=== PATIENT | male | born 1965 | race Caucasian/White ===

== ENCOUNTER 2023-11-03 13:56 | Inpatient (IN) | payer OTHER ==
--- OUTSIDE RECORDS SUMMARY | 2023-11-03 14:00 | XMS REPORT | Continuity of Care Document ---
Author Name Unknown Address [address] [facility] [place] [address] [facility] Address [address] [facility] [address] [place] [address] Care Team Providers Care Lard Renderer Name Role Phone Jeanne Martin Primary Care Physician [phone] OSMANY PARRA Attending Clinician Jen vailable Doctor Unassigned, [place] Attending Clinician U gianna Abbott, c Attending Clinician Unavailable Osmany Parra MD Attending Clinician Osmany Parra MD Attending Clinician PINKY DONALDSON Attending Clinician Unavailab le Pinky Donaldson Attending Clinician [phone] Doctor Unassigned, [place] Attending Clinician U Niurka Esteves MD Attending Clinician [phone] TATIANNA GORDILLO Attending Clinician Unavailable Tatianna Kamara Attending Clinician [phone] NIURKA CASE Attending Clinician Unavailable Lab, Ang - Db Attending Clinician Unavailable WANDY GRIGGS Attending Clinician Unavailable PINKY DONALDSON Admitting Clinician Unavailab OSMANY Morris Admitting Clinician Jen vailable ZACK HUI Admitting Clinician Unavailable NIURKA CASE Admitting Clinician Unavailable Payers Payer Name Policy Type Policy Number Effective Date Expirati on Date Source Problems Condition Name Condition Details Condition Category Status Onset Date Resolution Date Last Treatment Date Treating Clinician Comments Source Prostate mass Prostate mass Disease Active 06-21 00:00: 00 [facility] Elevated PSA Elevated PSA Disease Active 06-21 00:00: 00 [facility] History of claustroph obia History of claustroph obia Disease Active 3-17 00:00: 00 [facility] Colon cancer screening Colon cancer screening Disease Active 2017-03 00:00: 00 Overview: Formattin g of this note might be different from the original. Added automatic ally from request for surgery [id number] [facility] Chronic diarrhea Chronic diarrhea Disease Active 2017-03 00:00: 00 Overview: Formattin g of this note might be different from the original. Added automatic ally from request for surgery [id number] [facility] Rectal bleeding Rectal bleeding Disease Active 2017-03 00:00: 00 Overview: Formattin g of this note might be different from the original. Added automatic ally from request for surgery [id number] [facility] Abdominal pain, left lower quadrant Abdominal pain, left lower quadrant Disease Active 2017-03 00:00: 00 Overview: Formattin g of this note might be different from the original. Added automatic ally from request for surgery [id number] [facility] Allergies, Adverse Reactions, Alerts Allergy Name Allergy Type Status Severity Reaction(s) Onset Date Inactive Date Treating Clinician Comments Source NO KNOWN ALLERGIE S Drug Class Active [facility] Social History Social Habit Start Date Stop Date Quantity Comments Source History of tobacco use Cigarette Smoker [facility] Gender identity [facility] of Social function 2023-04-09 00:00:00 2023-04-09 00:00:00 [facility] Exposure to SARS-CoV-2 (event) 2022-07-06 00:00:00 2022-07-16 11:05:00 Not sure [facility] Tobacco use and exposure 2022-06-21 00:00:00 2022-06-21 00:00:00 Smokeless tobacco non-user [facility] Sex assigned at 1965 00:00:00 1965 00:00:00 [facility] Smoking Status Start Date Stop Date Source Tobacco smoking consumption unknown [facility] Smokes tobacco daily 2022-06-21 00:00:00 [facility] Medications Ordered Medication Name Filled Medication Name Start Date Stop Date Current Medication? Ordering Clinician Indication Dosage Frequency Signature (SIG) Comments Components Source gadobenate dimeglumine (MULTIHANCE -20 mL) injection 16.42 mL 05-09 20:00: 00 05-09 19:43 :00 No [id number] .2mL/kg 16.42 mL (0.2 mL/kg ?82.1 kg), Intravenou s, ONCE, 1 dose, On Sat05/10/23 at 1400, Routine [facility] LORazepam (ATIVAN) tablet 2 mg 05-09 18:45: 00 05-09 18:45 :00 No [id number] 2mg 2 mg, Oral, ONCE, 1 dose, On Sat05/10/23 at 1245, Routine [facility] sodium bicarbonate 8.4 % (1 mEq/mL) injection 07-16 18:47: 08 07-16 18:47 :08 No Slow IV Push, PRN, Starting on Sat07/16/22 at 1347, Until Discontinu ed, Routine, Intra-op [facility] lidocaine 2% (XYLOCAINE) 20 mg/mL (2 %) injection 07-16 18:46: 18 07-16 18:46 :18 No PRN, Starting on Sat07/16/22 at 1346, Until Discontinu ed, Routine, Intra-op [facility] LORazepam (ATIVAN) tablet 07-16 18:15: 00 07-16 18:15 :00 No Oral, PRN, Starting on Sat07/16/22 at 1315, Until Discontinu ed, Routine, Intra-op [facility] cefdinir 300 mg capsule 06-21 00:00: 00 Yes 300mg Take 1 capsule by mouth every 12 (twelve) hours. [facility] ipratropium 0.02 % nebulizer solution 06-13 00:00: 00 Yes [facility] BREZTRI AEROSPHERE 160-9-4.8 mcg/actuati on HFAA 05 00:00: 00 Yes [facility] predniSONE 20 mg tablet 06-05 00:00: 00 Yes [facility] HYDROcodone -acetaminop hen 10-325 mg tablet 06-05 00:00: 00 Yes 1{tbl} Take 1 tablet by mouth every 6 (six) hours as needed. [facility] hydrOXYzine 25 mg tablet 06-05 00:00: 00 Yes 25mg Take 1 tablet by mouth every 8 (eight) hours. [facility] benzonatate 100 mg capsule 06-05 00:00: 00 Yes [facility] arformotero L 15 mcg/2 mL nebulizer solution 06-05 00:00: 00 Yes [facility] simvastatin 40 mg tablet 05-21 00:00: 00 Yes [facility] tamsulosin 0.4 mg 24 hr capsule 05-21 00:00: 00 Yes [facility] lamoTRIgine 25 mg tablet 05-21 00:00: 00 Yes [facility] LORazepam (ATIVAN) tablet 2 mg 05-18 16:15: 00 05-18 15:22 :00 No [id number] 2mg 2 mg, Oral, ONCE, 1 dose, On Sat05/18/22 at 1115, Routine [facility] peg-electro lyte soln 236-22.74-6 .74 -5.86 gram solution 2017-03 0-24 00:00: 00 Yes Take as directed before colonoscop y [facility] SYMBICORT 160-4.5 mcg/actuati on inhaler 2017-03 008 00:00: 00 Yes INL 2 PFS PO BID [facility] fluticasone 50 mcg/actuati on nasal spray 2017-03 00:00: 00 Yes SHAKE LQ AND U 1 SPR IEN D [facility] gabapentin 300 mg capsule 2017-03 00:00: 00 Yes TK 1 C PO TID [facility] simvastatin 20 mg tablet 2017-03 00:00: 00 Yes TK 1 T PO HS [facility] albuterol 2.5 mg /3 mL (0.083 %) nebulizer solution 2017-03 0 00:00: 00 Yes [facility] DALIRESP 500 mcg tablet 11-14 00:00: 00 Yes TK 1 T PO D [facility] loratadine 10 mg tablet 11-13 00:00: 00 Yes TK 1 T PO QD [facility] Immunizations Ordered Immunization Name Filled Immunization Name Date Status Comments Source SARS-COV-2 COVID-19 PFIZER VACCINE 2020-06-10 00:00:00 Completed [facility] SARS-COV-2 COVID-19 PFIZER VACCINE 2020-06-10 00:00:00 Completed [facility] SARS-COV-2 COVID-19 PFIZER VACCINE 2020-06-10 00:00:00 Completed [facility] SARS-COV-2 COVID-19 PFIZER VACCINE 2020-06-10 00:00:00 Completed [facility] SARS-COV-2 COVID-19 PFIZER VACCINE 2020-06-10 00:00:00 Completed [facility] SARS-COV-2 COVID-19 PFIZER VACCINE 2020-06-10 00:00:00 Completed [facility] SARS-COV-2 COVID-19 PFIZER VACCINE 2020-06-10 00:00:00 Completed [facility] SARS-COV-2 COVID-19 PFIZER VACCINE 2020-06-10 00:00:00 Completed [facility] SARS-COV-2 COVID-19 PFIZER VACCINE 2020-06-10 00:00:00 Completed [facility] SARS-COV-2 COVID-19 PFIZER VACCINE 2020-06-10 00:00:00 Completed [facility] SARS-COV-2 COVID-19 PFIZER VACCINE 2020-06-10 00:00:00 Completed [facility] SARS-COV-2 COVID-19 PFIZER VACCINE 2020-06-10 00:00:00 Completed [facility] SARS-COV-2 COVID-19 PFIZER VACCINE 2020-06-10 00:00:00 Completed [facility] SARS-COV-2 COVID-19 PFIZER VACCINE 2020-06-10 00:00:00 Completed [facility] SARS-COV-2 COVID-19 PFIZER VACCINE 2020-06-10 00:00:00 Completed [facility] SARS-COV-2 COVID-19 PFIZER VACCINE 2020-06-10 00:00:00 Completed [facility] SARS-COV-2 COVID-19 PFIZER VACCINE 2020-06-10 00:00:00 Completed [facility] SARS-COV-2 COVID-19 PFIZER VACCINE 2020-05-20 00:00:00 Completed [facility] SARS-COV-2 COVID-19 PFIZER VACCINE 2020-05-20 00:00:00 Completed [facility] SARS-COV-2 COVID-19 PFIZER VACCINE 2020-05-20 00:00:00 Completed [facility] SARS-COV-2 COVID-19 PFIZER VACCINE 2020-05-20 00:00:00 Completed [facility] SARS-COV-2 COVID-19 PFIZER VACCINE 2020-05-20 00:00:00 Completed [facility] SARS-COV-2 COVID-19 PFIZER VACCINE 2020-05-20 00:00:00 Completed [facility] SARS-COV-2 COVID-19 PFIZER VACCINE 2020-05-20 00:00:00 Completed [facility] SARS-COV-2 COVID-19 PFIZER VACCINE 2020-05-20 00:00:00 Completed [facility] SARS-COV-2 COVID-19 PFIZER VACCINE 2020-05-20 00:00:00 Completed [facility] SARS-COV-2 COVID-19 PFIZER VACCINE 2020-05-20 00:00:00 Completed [facility] SARS-COV-2 COVID-19 PFIZER VACCINE 2020-05-20 00:00:00 Completed [facility] SARS-COV-2 COVID-19 PFIZER VACCINE 2020-05-20 00:00:00 Completed [facility] SARS-COV-2 COVID-19 PFIZER VACCINE 2020-05-20 00:00:00 Completed [facility] SARS-COV-2 COVID-19 PFIZER VACCINE 2020-05-20 00:00:00 Completed [facility] SARS-COV-2 COVID-19 PFIZER VACCINE 2020-05-20 00:00:00 Completed [facility] SARS-COV-2 COVID-19 PFIZER VACCINE 2020-05-20 00:00:00 Completed [facility] SARS-COV-2 COVID-19 PFIZER VACCINE 2020-05-20 00:00:00 Completed [facility] SARS-COV-2 COVID-19 PFIZER VACCINE Unknown Completed [facility] SARS-COV-2 COVID-19 PFIZER VACCINE Unknown Completed [facility] SARS-COV-2 COVID-19 PFIZER VACCINE Unknown Completed [facility] SARS-COV-2 COVID-19 PFIZER VACCINE Unknown Completed [facility] SARS-COV-2 COVID-19 PFIZER VACCINE Unknown Completed [facility] SARS-COV-2 COVID-19 PFIZER VACCINE Unknown Completed [facility] SARS-COV-2 COVID-19 PFIZER VACCINE Unknown Completed [facility] SARS-COV-2 COVID-19 PFIZER VACCINE Unknown Completed [facility] SARS-COV-2 COVID-19 PFIZER VACCINE Unknown Completed [facility] SARS-COV-2 COVID-19 PFIZER VACCINE Unknown Completed [facility] SARS-COV-2 COVID-19 PFIZER VACCINE Unknown Completed [facility] SARS-COV-2 COVID-19 PFIZER VACCINE Unknown Completed [facility] SARS-COV-2 COVID-19 PFIZER VACCINE Unknown Completed [facility] SARS-COV-2 COVID-19 PFIZER VACCINE Unknown Completed [facility] SARS-COV-2 COVID-19 PFIZER VACCINE Unknown Completed [facility] SARS-COV-2 COVID-19 PFIZER VACCINE Unknown Completed [facility] SARS-COV-2 COVID-19 PFIZER VACCINE Unknown Completed [facility] SARS-COV-2 COVID-19 PFIZER VACCINE Unknown Completed [facility] Vital Signs Vital Name Observation Time Observation Value Comments S arsh Systolic blood pressure 2023-09-24 13:06:00 127 [facility] Di[facility] blood [facility] 2023-09-24 13:06:00 75 mm[facility]Hg[facility] Heart rate 2023-09-24 13:06:00 79 /min [facility] Body temperature 2023-09-24 13:06:00 36.89 Kimberlee [facility] Respiratory rate 2023-09-24 13:06:00 20 /min [facility] Body height 2023-09-24 13:06:00 177.8 cm [facility] Body weight 2023-09-24 13:06:00 81.285 kg [facility] BMI 2023-09-24 13:06:00 25.71 kg/m2 [facility] Systolic blood pressure 2023-05-10 18:41:00 144 mm[Hg[facility] Diastolic blood pressure 2023-05-10 18:41:00 89 mm[Hg[facility] Heart rate 2023-05-10 18:41:00 90 /min [facility] Respiratory rate 2023-05-10 18:41:00 18 /min [facility] Body height 2023-05-10 18:41:00 177.8 cm [facility] Body weight 2023-05-10 18:41:00 82.101 kg [facility] BMI 2023-05-10 18:41:00 25.97 kg/m2 [facility] Oxygen saturation in Arterial blood by Pulse oximetry 2023-05-10 18:41:00 98 /min [facility] Systolic blood pressure 2023-04-09 14:45:00 161 mm[Hg[facility] Diastolic blood pressure 2023-04-09 14:45:00 80 mm[Hg[facility] Heart rate 2023-04-09 14:45:00 80 /min [facility] Body temperature 2023-04-09 14:45:00 36.67 Kimberlee [facility] Body height 2023-04-09 14:45:00 177.8 cm [facility] weight 2023-04-09 14:45:00 82.101 kg Univ [facility] BMI 2023-04-09 14:45:00 25.97 kg/m2 [facility] Oxygen saturation in Arterial blood by Pulse oximetry 2023-04-09 14:45:00 98 /min [facility] Systolic blood pressure 2022-10-02 18:38:00 138 mm[Hg] [facility] Diastolic blood pressure 2022-10-02 18:38:00 78 mm[Hg] [facility] Heart rate 2022-10-02 18:38:00 80 /min [facility] Body height 2022-10-02 18:38:00 177.8 cm Univ [facility] Body weight 2022-10-02 18:38:00 79.289 kg [facility] BMI 2022-10-02 18:38:00 25.08 kg/m2 [facility] Oxygen saturation in Arterial blood by Pulse oximetry 2022-10-02 18:38:00 95 /min [facility] Systolic blood pressure 2022-07-16 19:00:00 112 mm[Hg[facility] Diastolic blood pressure 2022-07-16 19:00:00 91 mm[Hg[facility] Heart rate 2022-07-16 19:00:00 100 /min [facility] Respiratory rate 2022-07-16 19:00:00 18 /min [facility] Oxygen saturation in Arterial blood by Pulse oximetry 2022-07-16 19:00:00 95 /min [facility] Body height 2022-07-16 16:08:00 177.8 cm Univ [facility] Body weight 2022-07-16 16:08:00 79.924 kg Univ [facility] BMI 2022-07-16 16:08:00 25.28 kg/m2 [facility] Body height 2022-05-18 15:17:00 177.8 cm Univ [facility] Body weight 2022-05-18 15:17:00 78.926 kg [facility] BMI 2022-05-18 15:17:00 24.97 kg/m2 [facility] Oxygen saturation in Arterial blood by Pulse oximetry 2022-05-18 15:17:00 98 /min [facility] Systolic blood pressure 2022-05-18 15:17:00 151 mm[Hg[facility] Diastolic blood pressure 2022-05-18 15:17:00 98 mm[Hg[facility] Heart rate 2022-05-18 15:17:00 75 /min [facility] Respiratory rate 2022-05-18 15:17:00 18 /min [facility] Procedures Procedure Date / Time Performed Performing Clinician Source PROSTATIC SPECIFIC ANTIGEN 2023-09-24 13:48:00 Osmany Parra [facility] CT LOW DOSE LUNG NODULE 2023-09-17 13:21:55 Pinky Donaldson [facility] PATIENT QUESTIONNAIRE 2023-04-09 06:01:00 Doctor Unassigned, [place] [facility] CT THORAX WO CONTRAST 2022-10-29 15:40:29 Sa luis alfredo Donaldson [facility] PATIENT QUESTIONNAIRE 2022-10-02 05:01:00 Doctor Unassigned, [place] [facility] SURGICAL PATHOLOGY EXAM 2022-07-16 18:53:00 Ishaan Hui [facility] ASSIGNMENT OF BENEFITS 2022-04-24 15:44:32 Docto r Unassigned, [place] [facility] SCANNED LAB RESULTS 2022-03-15 06:01:00 Doctor U nassigned, [place] [facility] Encounters Start Date/Time End Date/Time Encounter Type Admission Type Attending Clinicians Care Facility Care Department Encounter ID Source 2023-09-26 00:00:00 2023-11-02 18:26:10 Patient Secure Msg Doctor Unassigned, [place] Doctor Unassigned, [place] [facility] [id number] 350.1.13.10 4.2.7.2.686 [id number] [facility] 2023-09-24 09:30:00 2023-09-24 09:45:00 Supervisor [employer] Canning Visit Lab, [facility] 1..114 350.1.13.10 4.2.7.2.686 [id number] [facility] 2023-09-24 08:00:00 2023-09-24 08:36:38 Outpatient R OSMANY PARRA [facility] [id number] [facility] 2023-09-24 08:00:00 2023-09-24 08:36:38 [facility]..114 350.1.13.10 4.2.7.2.686 [id number] [facility] 2023-09-17 07:59:31 2023-09-17 23:59:00 Outpatient R PINKY DONALDSON [facility] [id number] [facility] 2023-09-17 07:59:31 2023-09-17 23:59:00 Hospital Encounter Pinky Donaldson [facility] 1.84.114 350.1.13.10 4.2.7.2.686 [id number] [facility] 2023-06-05 09:30:04 2023-06-05 09:30:04 Outpatient SFA [id number] Ye Segal 2023-05-10 11:48:53 2023-05-10 23:59:00 Outpatient R OSMANY PARRA [facility] [id number] [facility] 2023-05-10 11:48:53 2023-05-10 23:59:00 [facility] 1..114 350.1.13.10 4.2.7.2.686 [id number] [facility] 2023-04-09 09:00:00 2023-04-10 08:22:38 Outpatient R OSMANY PARRA [facility] [id number] [facility] 2023-04-09 09:00:00 2023-04-10 08:22:38 [facility] 1.840.114 350.1.13.10 4.2.7.2.686 [id number] [facility] 2023-04-09 09:30:00 2023-04-09 09:45:00 Supervisor Pow[employer] Canning Visit Lab, [facility] Osmany Parra [facility] 1.20.114 350.1.13.10 4.2.7.2.686 [id number] [facility] 2023-04-09 00:00:00 2023-04-09 00:00:00 Orders Only Doctor Unassigned, [place] [facility] 1.2840.114 350.1.13.10 4.2.7.2.686 [id number] [facility] 2023-01-01 09:25:44 2023-01-01 09:25:44 Outpatient SFA [id number] Ye Colin Philipp 2022-10-29 10:20:07 2022-10-29 23:59:00 Outpatient R PINKY DONALDSON [facility] [id number] [facility] 2022-10-29 10:20:07 2022-10-29 23:59:00 Hospital Encounter Pinky Donaldson [facility] 1.84.114 350.1.13.10 4.2.7.2.686 [id number] [facility] 2022-10-25 00:00:00 2022-10-25 00:00:00 Outpatient R PINYK DONALDSON [facility] [id number] [facility] 2022-10-02 15:30:00 2022-10-02 15:45:00 Supervisor [employer] Primer Canning Visit Lab, [facility] LesleyOsmany [facility] 1..114 350.1.13.10 4.2.7.2.686 [id number] [facility] 2022-10-02 14:00:00 2022-10-02 14:30:00 [facility] 1..114 350.1.13.10 4.2.7.2.686 [id number] [facility] 2022-10-02 14:00:00 2022-10-02 14:00:00 Outpatient R STEVENOSMANY FERGUSON [facility] [id number] [facility] 2022-10-02 00:00:00 2022-10-02 00:00:00 Orders Only Doctor Unassigned, [place] [facility] 1..114 350.1.13.10 4.2.7.2.686 [id number] [facility] 2022-10-01 11:23:39 2022-10-01 11:23:39 Outpatient SFA [id number] Ye Colin Philipp 2022-07-31 08:50:21 2022-07-31 23:59:00 Outpatient R PINKY DONALDSON [facility] [id number] [facility] 2022-07-31 08:50:21 2022-07-31 23:59:00 Hospital Encounter Pinky Donaldson [facility] 1..114 350.1.13.10 4.2.7.2.686 [id number] [facility] 2022-07-31 00:00:00 2022-07-31 00:00:00 Telephone Niurka Case [facility] 1..114 350.1.13.10 4.2.7.2.686 [id number] [facility] 2022-07-16 10:20:39 2022-07-16 23:59:00 Outpatient TATIANNA SANFORD [facility] [id number] [facility] 2022-07-16 10:20:39 2022-07-16 23:59:00 [facility] .2.840.114 350.1.13.10 4.2.7.2.686 [id number] [facility] 2022-07-12 00:00:00 2022-07-12 00:00:00 Outpatient R EIVE [facility] [id number] [facility] 2022-06-21 13:51:58 2022-06-21 13:51:58 Outpatient TATIANNA SANFORD [facility] [id number] [facility] 2022-06-21 00:00:00 2022-06-21 00:00:00 [facility] [id number] [facility] 2022-06-13 10:05:46 2022-06-13 10:05:46 Outpatient [facility] [id number] Ye Segal 2022-05-25 00:00:00 2022-05-25 00:00:00 Telephone Evie [facility] .2.840.114 350.1.13.10 4.2.7.2.686 [id number] [facility] 2022-05-18 09:57:24 2022-05-18 23:59:00 Outpatient R EVIE [facility] [id number] [facility] 2022-05-18 09:57:24 2022-05-18 23:59:00 Hospital Encounter Evie [facility] 1.840.114 350.1.13.10 4.2.7.2.686 [id number] [facility] 2022-04-24 10:45:00 2022-04-24 11:00:00 Supervisor Powder [employer] Canning Visit Lab, Fabian Case [facility] 1.840.114 350.1.13.10 4.2.7.2.686 [id number] [facility] 2022-04-24 10:00:00 2022-04-24 10:26:29 Outpatient Cal CASE NIURKA [facility] [id number] [facility] 2022-04-24 00:00:00 2022-04-24 00:00:00 Orders Only Doctor Unassigned, [place] [facility] [id number] [facility] 2022-03-15 00:00:00 2022-03-15 00:00:00 Orders Only Doctor Unassigned, [place] [facility] [id number] [facility] 2020-06-10 09:50:00 2020-06-10 09:50:00 Outpatient [facility] [id number] [facility] 2020-06-10 09:50:00 2020-06-10 09:50:00 Outpatient [facility] [id number] [facility] 2020-05-20 09:50:00 2020-05-20 09:50:00 Outpatient WANDY GARCIA [facility] [id number] [facility] Results Test Description Test Time Test Comments Results Resul t Comments Source CT LUNG NODULE 2023-09-02 6 14:48:55 HISTORY: Not available. TECHNIQUE: 64-Multidetector noncontrast enhanced CT of the chest isobtained. FINDINGS: Comparison made with 10/29/2022 CT chest study. Thyroid gland, trachea and central bronchial airways appear unremarkable.Several subcentimeter lymph nodes are seen surrounding the trachea, APwindow region and in the subcarinal space, stable since the previous study. Thickened bilateral adrenal glands are stable. Irregular pleural-based nodularity/fibrosis noted in the superior segmentof the left lower lung with retraction of the adjacent interlobar fissureand linear fibrosis stranding extending up to the pleura. In addition, a 3mm nodule is seen in the superior segment of the right lower lobe (19:95,unchanged. Obstructive lung disease noted with numerous 2 cm or smaller sizeemphysematous bulla scattered throughout both lungs. A new irregular shaped nodularity has developed, measuring [id number] in the left upper lung (9:104). 4 mm pleural-based nodularity is seen in the anterior lateral left upperlung (9:117, unchanged. Irregular fibrotic changes are suspected in theposterior segment of left upper lung with mild bronchiectasis in theadjacent airways (9:114-120), unchanged. Minimal focal fibrotic changes areseen in the posterior segment of the right upper lobe adjacent to theinterlobar fissure (9:116-120, unchanged). No pleural effusion or pericardial effusion. No pneumothorax orpneumomediastinum. Focal calcification is seen in the left coronary sinusregion adjacent to left main coronary artery. No other calcifications inthe coronary circulation. Calcifications seen in the aortic arch and at theorigins of brachiocephalic arteries. Prominent Schmorl's node noted in the upper plate of T10 secondary toremote trauma. Remote fracture deformity noted in left seventh and eighthribs. CONCLUSIONS: 1. New irregular shaped 8 mm nodule in left upper lobe since October 2022study. This could be a focal area of nonspecific pulmonary infection.2. Unchanged multiple sites of parenchymal nodules/distortion secondary tofibrosis in both lungs and underlying generalized obstructive lung disease. Recommendations for Follow-up and Management of Indeterminate Lung Nodules. Nodule ? ? Diameter >6-8 mm ? Follow up CT at 6, 12 and 24 months. ? If no change, no further follow up. [facility] Notes Date/Time Note Provider Source 2023-09-24 09:30:00 Callled for patient at waiting area, no answer. Jordyn Valladares [facility] 2023-09-24 09:30:00 Images from the original note were not included. Venipuncture collection performed by clean technique on the left anticubitus. Total of 1 attempts were made. Slight pressure and a bandage/dressing were applied to the site(s). The patient experienced no complications. The following specimens were processed according to instructions and sent to [facility] laboratories per lab order on 09/24/23: LT BLUE 1 SST RED LAV PPT DK GREEN (LiHep) DK GREEN (SodH) GARCIA DK BLUE (K2) DK BLUE (S) ACD Blood Culture NIPT/NTD [facility] 2023-09-24 08:00:00 Called. No answer. Left a message on machine for patient to give us a call back. Madeline Mcfadden RN Madeline Blank RN [facility] 2023-09-24 08:00:00 Called, no answer. Left a message on machine for patient to give us a call back. Will send mychart message. Madeline Mcfadden RN [facility] 2023-04-09 09:30:00 Images from the original note were not included. Venipuncture collection performed by clean technique on the right anticubitus. Total of 1 attempts were made. Slight pressure and a bandage/dressing were applied to the site(s). The patient experienced no complications. The following specimens were processed according to instructions and sent to [facility] laboratories per lab order on 04/09/23: LT BLUE SST 1 RED LAV PPT DK GREEN (LiHep) DK GREEN (SodH) GARCIA DK BLUE (K2) DK BLUE (S) ACD Blood Culture NIPT/NTD [facility] 2022-10-02 15:30:00 Formatting of this n ote is different from the original. Images from the original note were not included. Venipuncture collection performed by clean technique on the right anticubitus. Total of 1 attempts were made. Slight pressure and a bandage/dressing were applied to the site(s). The patient experienced no complications. The following specimens were processed according to instructions and sent to [facility] laboratories per lab order on 10/02/22: Drawn by Parisa WATKINS SST 1 RED LAV PPT DK GREEN (LiHep) DK GREEN (SodH) GARCIA DK BLUE (K2) DK BLUE (S) ACD Blood Culture NIPT/NTD [facility] 2022-10-02 14:00:00 Addended by: OSMANY PARRA MD on: 10/07/2022 11:09 AM Modules accepted: Level of Service [facility]
[2023-11-03 16:08] LABS: Absolute Basophils 0.1 K/uL (0-0.5); Absolute Eosinophils 0.2 K/uL (0-0.5); Absolute Lymphocytes (CBC) 1.3 K/uL (0.7-4.9); Absolute Monocytes 1.3 K/uL (0.1-1.3); Absolute Neutrophil 8.6 K/uL (1.8-8.0); Basophils % 0.5 % (0-1.3); Eosinophils % 1.7 % (0-4.4); Hemoglobin 15.8 g/dL (13.6-17.9); Lymphocytes % 11.6 % (15.3-44.8); MCH 33.3 pg (27.0-35.0); MCHC 32.9 g/dL (32.0-36.0); MCV 101.4 fL (80-100); MPV 7.5 fL (7.6-11.3); Monocytes % 11.7 % (3.3-12.3); Neutrophils % 74.5 % (41.7-73.7); Platelets 345 thou/uL (152-406); RBC Red Blood Cell Count 4.73 M/uL (4.33-5.43); Red Cell Distribution Width 13.4 % (12.1-15.2)
[2023-11-03 16:12] LABS: PT Prothrombin Time 12.2 SECONDS (9.4-12.5); Protime INR 1.09
[2023-11-03 16:19] LABS: ALT/SGPT 18 U/L (16-61); Albumin 3.4 g/dL (3.4-5.0); Albumin/Globulin Ratio 0.8 (1.1-1.8); Alkaline Phosphatase 157 U/L (45-117); Anion Gap 9.1 mEq/L (5.0-15.0); BUN Blood Urea Nitrogen 7 mg/dL (7-18); Bicarbonate 27 mEq/L (21-32); Bilirubin Direct 0.3 mg/dL (0-0.2); Bilirubin Indirect, Calculated 0.5 mg/dL (0.2-0.8); Bilirubin Total 0.8 mg/dL (0.2-1.0); Globulin 4.5 g/dL (2.3-3.5); Glomerular Filtration Rate 102 ml/min (=/>90); Glucose Level 100 mg/dL (74-106); NT PRO-BNP 126 pg/mL (<125); Potassium 4.1 mEq/L (3.5-5.1); Protein, Total 7.9 g/dL (6.4-8.2); Sodium Level 132 mEq/L (136-145); Troponin High Sensitivity 4.2 pg/mL (<58.9)
[2023-11-03 16:34] LABS: AST/SGOT < 10 U/L (15-37)
--- NOTE | 2023-11-03 17:09 | RAD REPORT ---
EXAM DESCRIPTION: CT - Chest For Pe Angio - 11/03/2023 4:57 pm CLINICAL HISTORY: Chest pain. HEMOPTYSIS COMPARISON: <Comparisons> TECHNIQUE: CT angiogram of the pulmonary arteries was performed with MIP. All CT scans are performed using dose optimization technique as appropriate and may include automated exposure control or mA/KV adjustment according to patient size. FINDINGS: No evidence of pulmonary thromboembolism. No acute aortic finding demonstrated. Mild emphysema. There is an irregular rounded masslike lesion in the anterior left upper lobe measuri ng 4.6 x 4.1 cm with internal areas of lucency. This is new since March 2023. Mildly prominent lymp h nodes in the mediastinum including AP window measuring 9 mm. No significant pericardial or pleural fluid. No concerning bony finding. IMPRESSION: No evidence of pulmonary thromboembolism. A 4.6 cm rounded masslike lesion in the left upper lobe with internal areas of cavitation noted. This is new since recent study dated March 27. Differential would include infection and neoplasia.
--- NOTE | 2023-11-03 17:33 | ER ---
Nurse's Notes [facility] Name: Garth Loaiza Age: 58 yrs Sex: Male : 1965 Arrival Date: 11/03/2023 Time: 13:56 Bed 4 Private MD: Diagnosis: Lung cavitary lesion, pneumonia, COPD, hemoptysis Presentation: 11/02 14:41 Chief complaint: Patient states: he has been coughing up blood "for a few days". ap3 patient also reports weakness, nausea and vomiting. patient reports pain on his left mid back area. patient reports the pain to be a 4/10 on the pain scale at this time. Coronavirus screen: At this time, the client does not indicate any symptoms associated with coronavirus-19. Ebola Screen: No symptoms or risks identified at this time. Initial Sepsis Screen: Does the patient meet any 2 criteria? No. Patient's initial sepsis screen is negative. Does the patient have a suspected source of infection? No. Patient's initial sepsis screen is negative. Risk Assessment: Do you want to hurt yourself or someone else? Patient reports no desire to harm self or others. Onset of symptoms is unknown. 14:41 Method Of Arrival: Ambulatory ap3 14:41 Acuity: TERRIE 3 ap3 15:51 Acuity: TERRIE 2 hb Triage Assessment: 14:44 General: Appears uncomfortable, Behavior is calm, cooperative, appropriate for age, ap3 Reports fatigue for. Pain: Complains of pain in left mid back Pain currently is 4 out of 10 on a pain scale. Neuro: Level of Consciousness is awake, alert, obeys commands, Oriented to person, place, time, situation, Appropriate for age. Neuro: Reports weakness. Cardiovascular: Patient's skin is warm and dry. Respiratory: Reports cough that is Airway is patent Respiratory effort is even, unlabored, Respiratory pattern is regular, symmetrical. GI: Reports nausea, vomiting. Historical: - Allergies: 14:43 tramadol; ap3 - PMHx: 14:43 Bronchitis; Chronic obstructive lung disease; ap3 - Immunization history:: Client reports receiving the 2nd dose of the Covid vaccine, Flu vaccine is not up to date. - Infectious Disease History:: Denies. - Social history:: Smoking status: Patient reports the use of cigarette tobacco products, smokes one-half pack cigarettes per day. Screenin:45 Abuse screen: Denies threats or abuse. Nutritional screening: No deficits noted. ap3 Tuberculosis screening: No symptoms or risk factors identified. 16:36 [facility] ED Fall Risk Assessment (Adult) History of falling in the last 3 months, mb9 including since admission No falls in past 3 months (0 pts) Confusion or Disorientation No (0 pts) Intoxicated or Sedated No (0 pts) Impaired Gait No (0 pts) Mobility Assist Device Used No (0 pt) Altered Elimination No (0 pt) Score/Fall Risk Level 0 - 2 = Low Risk Oriented to surroundings, Maintained a safe environment, Educated pt \\T\\ family on fall prevention, incl call for assistance when getting out of bed. Assessment: 16:35 General: Appears uncomfortable, ill, Behavior is calm, cooperative. Pain: Denies pain. mb9 Neuro: Hung Agitation-Sedation Scale (RASS): 0 - Alert and Calm Level of Consciousness is awake, alert, obeys commands, Oriented to person, place, time, situation, Appropriate for age Reports dizziness. Cardiovascular: Heart tones S1 S2 present Patient's skin is warm and dry. Rhythm is sinus tachycardia. Respiratory: Reports cough that is productive, blood clots Airway is patent Respiratory effort is even, unlabored, Respiratory pattern is regular, symmetrical, Breath sounds are coarse bilaterally. GI: Abdomen is round non-distended, Bowel sounds present X 4 quads. Abd is soft and non tender X 4 quads. : No signs and/or symptoms were reported regarding the genitourinary system. EENT: No signs and/or symptoms were reported regarding the EENT system. Derm: Skin is pink, warm \\T\\ dry. Musculoskeletal: Range of motion: intact in all extremities. 17:50 Reassessment: Patient appears in no apparent distress at this time. No changes from ld1 previously documented assessment. Pt C/O SOB. See MAR for orders. 18:19 Reassessment: No changes from previously documented assessment. Patient and/or family mb9 updated on plan of care and expected duration. Pain level reassessed. Patient is alert, oriented x 3, equal unlabored respirations, skin warm/dry/pink. 19:43 Reassessment: Patient appears in no apparent distress at this time. Patient and/or bm8 family updated on plan of care and expected duration. Pain level reassessed. Patient is alert, oriented x 3, equal unlabored respirations, skin warm/dry/pink. General: Appears in no apparent distress. uncomfortable, Behavior is calm, cooperative. Pain: Complains of pain in back Pain currently is 4 out of 10 on a pain scale. Neuro: Level of Consciousness is awake, alert, obeys commands, Oriented to person, place, time, situation, Appropriate for age. Cardiovascular: Denies chest pain, Heart tones S1 S2 present Capillary refill < 3 seconds Patient's skin is warm and dry. Rhythm is sinus rhythm. Respiratory: Airway is patent Respiratory effort is even, unlabored, relaxed, Respiratory pattern is regular, symmetrical, Breath sounds are coarse in left posterior lower lobe, right posterior middle lobe and right posterior lower lobe. GI: No signs and/or symptoms were reported involving the gastrointestinal system. GI: No signs and/or symptoms were reported involving the gastrointestinal system. : No signs and/or symptoms were reported regarding the genitourinary system. EENT: No signs and/or symptoms were reported regarding the EENT system. Derm: No signs and/or symptoms reported regarding the dermatologic system. Musculoskeletal: Range of motion: intact in all extremities. Vital Signs: 14:41 BP 126 / 85; Pulse 89; Resp 18; Temp 98.6(O); Pulse Ox 99% on R/A; Weight 79.38 kg; ap3 Height 5 ft. 10 in. ; Pain 4/10; 16:35 BP 145 / 83; Pulse 98; Resp 18; Pulse Ox 99% on R/A; mb9 17:50 BP 140 / 84; Pulse 94; Resp 14; Pulse Ox 99% on R/A; ld1 18:45 BP 137 / 84; Pulse 91; Resp 18; Pulse Ox 97% on R/A; mb9 19:48 BP 139 / 79; Pulse 89; Resp 13; Temp 98.6; Pulse Ox 98% ; Pain 4/10; bm8 14:41 Body Mass Index 25.11 (79.38 kg, 177.8 cm) ap3 14:41 Pain Scale: Adult ap3 19:48 Pain Scale: Adult bm8 [place] Coma Score: 19:43 Eye Response: spontaneous(4). Motor Response: obeys commands(6). Verbal Response: bm8 oriented(5). Total: 15. ED Course: 14:00 Patient arrived in ED. mg5 14:03 Jimmy Del Valle MD is Attending Physician. sp3 14:43 Triage completed. ap3 14:45 Arm band placed on right wrist. ap3 15:50 Inserted saline lock: 20 gauge in right antecubital area, using aseptic technique. hb Blood collected. Flushed with 10 mL NS. 15:51 Basic Metabolic Panel Sent. hb 15:51 CBC with Diff Sent. hb 15:51 LFT's Sent. hb 15:51 NT PRO-BNP Sent. hb 15:51 PT-INR Sent. hb 15:51 Troponin HS Sent. hb 16:00 EKG done, by ED staff, reviewed by Jimmy Del Valle MD. em1 16:28 Izabella Lugo, RN is Primary Nurse. mb9 16:35 No provider procedures requiring assistance completed. mb9 16:38 Placed in gown. Bed in low position. Call light in reach. Side rails up X 1. Provided mb9 Education on: press call light if needing anything . Client placed on continuous cardiac and pulse oximetry monitoring. NIBP monitoring applied. manager sign on. 16:59 CT Chest For PE Angio In Process Unspecified. EDMS 17:33 Bernarda Zhou MD is Hospitalizing Provider. sp3 17:54 Blood Culture Adult (2) Sent. ld1 17:56 Private physician called and connected Dr. Donaldson with Dr. Del Valle for patient transfer eb consultation. 18:19 Patient admitted, IV remains in place. mb9 19:00 Report given to Cassandra. mb9 Administered Medications: 17:54 Drug: Cefepime IVPB 2 grams IVPB at 200 ml/hr once over 30 mins; (mix in NS 100 mL) ld1 Route: IVPB; Rate: 200 ml/hr; Infused Over: 30 mins; Site: right antecubital; 18:22 Follow up: Response: No adverse reaction; IV Status: Completed infusion mb9 19:46 Follow up: Response: No adverse reaction; IV Status: Completed infusion; IV Intake: bm8 100ml 17:54 Drug: DuoNeb Nebulize (3:1) (2.5 mg - 0.5 mg) 3 ml Nebulizer once Route: Nebulizer; ld1 18:22 Follow up: Response: No adverse reaction mb9 19:45 Follow up: Response: No adverse reaction bm8 Medication: 16:38 VIS not applicable for this client. mb9 Intake: 19:46 IV: 100ml; Total: 100ml. bm8 Outcome: 17:33 Decision to Hospitalize by Provider. sp3 21:17 Admitted to Tele accompanied by nurse, via wheelchair, room 407, with chart, Report bm8 called to rikki barr 21:17 Condition: stable 21:17 Instructed on the need for admit, no drinking with medication, no driving heavy equipment, medication usage, safety practices, Demonstrated understanding of instructions, follow-up care, medications, 21:19 Patient left the ED. bm8 Signatures: Dispatcher [employer] EDMS Josh Laws em1 Cecily Fitzpatrick, RN RN Danuta Rogers RN RN ap3 Adry Pa Lauren RN RN ld1 Jimmy Del Valle MD MD sp3 Parish, Izabella Desouza RN RN mb9 Isabel English mg5 Kalpesh Acosta RN RN bm8 Corrections: (The following items were deleted from the chart) 14:44 14:43 Allergies: Iodine; ap3 ap3 16:37 16:35 Neuro: Hung Agitation-Sedation Scale (RASS): 0 - Alert and Calm Level of mb9 Consciousness is awake, alert, obeys commands, Oriented to person, place, time, situation, Appropriate for age mb9 16:40 16:35 Respiratory: Airway is patent Respiratory effort is even, unlabored, Respiratory mb9 pattern is regular, symmetrical, Breath sounds are coarse bilaterally. mb9
--- NOTE | 2023-11-03 17:34 | EDPHYS ---
Physician Documentation [facility] Name: Garth Loaiza Age: 58 yrs Sex: Male : 1965 Arrival Date: 11/03/2023 Time: 13:56 Bed 4 Private MD: ED Physician Jimmy Del Valle HPI: 11/02 16:53 This 58 yrs old Male presents to ER via Ambulatory with complaints of Cough - BLOOD. sp3 16:53 58-year-old male with a history of COPD and prostate cancer not currently on treatment sp3 but is due to start a regimen now presents to the ED with left-sided chest pain radiating around to his back and hemoptysis for the last several days. He denies fever, headache, neck pain, abdominal pain, vomiting, diarrhea, syncope, near syncope, rash, known sick contacts, travel history, or any other signs or symptoms on ROS at this time. No prior history of DVT or PE noted. Patient does have mild shortness of breath and cough as well.. Historical: - Allergies: 14:43 tramadol; ap3 - PMHx: 14:43 Bronchitis; Chronic obstructive lung disease; ap3 - Immunization history:: Client reports receiving the 2nd dose of the Covid vaccine, Flu vaccine is not up to date. - Infectious Disease History:: Denies. - Social history:: Smoking status: Patient reports the use of cigarette tobacco products, smokes one-half pack cigarettes per day. ROS: 16:54 Constitutional: Negative for fever, chills, and weight loss, Eyes: Negative for injury, sp3 pain, redness, and discharge, Neck: Negative for injury, pain, and swelling, Abdomen/GI: Negative for abdominal pain, nausea, vomiting, diarrhea, and constipation, Back: Negative for injury and pain, MS/Extremity: Negative for injury and deformity, Skin: Negative for injury, rash, and discoloration, Neuro: Negative for headache, weakness, numbness, tingling, and seizure, Psych: Negative for depression, anxiety, suicide ideation, homicidal ideation, and hallucinations, Allergy/Immunology: Negative for hives, rash, and allergies, Endocrine: Negative for neck swelling, polydipsia, polyuria, polyphagia, and marked weight changes, Hematologic/Lymphatic: Negative for swollen nodes, abnormal bleeding, and unusual bruising, Exam: 16:54 Constitutional: This is a well developed, well nourished patient who is awake, alert, sp3 and in no acute distress. Head/Face: Normocephalic, atraumatic. Eyes: Pupils equal round and reactive to light, extra-ocular motions intact. Lids and lashes normal. Conjunctiva and sclera are non-icteric and not injected. Cornea within normal limits. Periorbital areas with no swelling, redness, or edema. ENT: Nares patent. No nasal discharge, no septal abnormalities noted. External auditory canals are clear. Oropharynx with no redness, swelling, or masses, exudates, or evidence of obstruction, uvula midline. Mucous membranes moist. Neck: Trachea midline, no thyromegaly or masses palpated, and no cervical lymphadenopathy. Supple, full range of motion without nuchal rigidity, or vertebral point tenderness. No Meningismus. Chest/axilla: Normal chest wall appearance and motion. Nontender with no deformity. No lesions are appreciated. Cardiovascular: Regular rate and rhythm with a normal S1 and S2. No gallops, murmurs, or rubs. Normal PMI, no JVD. No pulse deficits. Respiratory: Lungs have equal breath sounds bilaterally, clear to auscultation and percussion. No rales, rhonchi or wheezes noted. No increased work of breathing, no retractions or nasal flaring. Abdomen/GI: Soft, non-tender, with normal bowel sounds. No distension or tympany. No guarding or rebound. No evidence of tenderness throughout. Back: No spinal tenderness. No costovertebral tenderness. Full range of motion. Skin: Warm, dry with normal turgor. Normal color with no rashes, no lesions, and no evidence of cellulitis. MS/ Extremity: Pulses equal, no cyanosis. Neurovascular intact. Full, normal range of motion. Neuro: Awake and alert, GCS 15, oriented to person, place, time, and situation. Cranial nerves II-XII grossly intact. Motor strength 5/5 in all extremities. Sensory grossly intact. Cerebellar exam normal. Normal gait. Psych: Awake, alert, with orientation to person, place and time. Behavior, mood, and affect are within normal limits. 16:54 ECG was reviewed by the Attending Physician. EKG demonstrates normal sinus rhythm at 92 sp3 bpm with normal intervals, normal QRS, normal axis, nonspecific ST's ST changes without evidence of acute ischemia. Vital Signs: 14:41 BP 126 / 85; Pulse 89; Resp 18; Temp 98.6(O); Pulse Ox 99% on R/A; Weight 79.38 kg; ap3 Height 5 ft. 10 in. ; Pain 4/10; 16:35 BP 145 / 83; Pulse 98; Resp 18; Pulse Ox 99% on R/A; mb9 17:50 BP 140 / 84; Pulse 94; Resp 14; Pulse Ox 99% on R/A; ld1 18:45 BP 137 / 84; Pulse 91; Resp 18; Pulse Ox 97% on R/A; mb9 19:48 BP 139 / 79; Pulse 89; Resp 13; Temp 98.6; Pulse Ox 98% ; Pain 4/10; bm8 14:41 Body Mass Index 25.11 (79.38 kg, 177.8 cm) ap3 14:41 Pain Scale: Adult ap3 19:48 Pain Scale: Adult bm8 [place] Coma Score: 19:43 Eye Response: spontaneous(4). Motor Response: obeys commands(6). Verbal Response: bm8 oriented(5). Total: 15. MDM: 14:42 Patient medically screened. 3 11/02 14:47 Order name: Basic Metabolic Panel; Complete Time: 16:52 3 11/02 14:47 Order name: CBC with Diff; Complete Time: 16:52 sp3 11/02 14:47 Order name: LFT's; Complete Time: 16:52 3 11/02 14:47 Order name: NT PRO-BNP; Complete Time: 16:52 3 11/02 14:47 Order name: PT-INR; Complete Time: 16:52 sp3 11/02 14:47 Order name: Troponin HS; Complete Time: 16:52 3 11/02 17:21 Order name: Blood Culture Adult (2) sp3 11/02 19:31 Order name: CBC with Automated Diff EDMS 11/02 19:31 Order name: CBC with Automated Diff EDMS 11/02 19:31 Order name: Comprehensive Metabolic Panel EDMS 11/02 19:31 Order name: Comprehensive Metabolic Panel EDMS 11/02 19:31 Order name: Lipid Profile EDMS 11/02 19:31 Order name: Lipid Profile EDMS 11/02 14:47 Order name: CT Chest For PE Angio; Complete Time: 17:18 sp3 11/02 19:31 Order name: CONS Physician Consult [facility] 11/02 14:47 Order name: Cardiac monitoring; Complete Time: 16:29 sp3 11/02 14:47 Order name: EKG - Nurse/Tech; Complete Time: 16:00 sp3 11/02 14:47 Order name: IV Saline Lock; Complete Time: 15:50 sp3 11/02 14:47 Order name: Labs collected and sent; Complete Time: 15:50 sp3 11/02 14:47 Order name: O2 Per Protocol; Complete Time: 16:29 sp3 11/02 14:47 Order name: O2 Sat Monitoring; Complete Time: 16:29 sp3 Administered Medications: 17:54 Drug: Cefepime IVPB 2 grams IVPB at 200 ml/hr once over 30 mins; (mix in NS 100 mL) ld1 Route: IVPB; Rate: 200 ml/hr; Infused Over: 30 mins; Site: right antecubital; 18:22 Follow up: Response: No adverse reaction; IV Status: Completed infusion mb9 19:46 Follow up: Response: No adverse reaction; IV Status: Completed infusion; IV Intake: bm8 100ml 17:54 Drug: DuoNeb Nebulize (3:1) (2.5 mg - 0.5 mg) 3 ml Nebulizer once Route: Nebulizer; ld1 18:22 Follow up: Response: No adverse reaction mb9 19:45 Follow up: Response: No adverse reaction bm8 Disposition Summary: 11/03/23 17:33 Hospitalization Ordered Notes: Hospitalization Status: Inpatient Admission sp3 Provider: Bernarda Zhou sp3 Location: Telemetry/[facility] (Inpatient) sp3 Condition: Stable sp3 Problem: new sp3 Symptoms: have worsened sp3 Bed/Room Type: Standard sp3 Room Assignment: 407(11/03/23 20:26) sp Diagnosis - Lung cavitary lesion, pneumonia, COPD, hemoptysis sp3 Forms: - Medication Reconciliation Form sp3 - SBAR form sp3 - Leadership Thank You Letter sp3 Signatures: Dispatcher [employer] [facility] Magali Ramirez Amanda, RN RN ap3 Laurel Carmona RN RN ld1 Jimmy Del Valle MD MD sp3 Izabella Lugo RN RN mb9 Kalpesh Acosta RN bm8 Corrections: (The following items were deleted from the chart) 14:44 14:43 Allergies: Iodine; ap3 ap3 14:47 14:47 Chest For PE Angio+CT.RAD.BRZ ordered. EDMS EDMS 20:26 17:33 sp3 sp
[2023-11-03] MEDS ORDERED: NA CHLORIDE 0.9% 100 ML ONE (17:41)
[2023-11-03] MEDS ORDERED: CEFEPIME 2 GM VIAL ONE (17:41)
[2023-11-03] MEDS ORDERED: IPRATROPIUM BROM 0.5MG/2.5ML ONE (17:53)
[2023-11-03] MEDS ORDERED: ALBUTEROL 2.5 MG/3 ML NEB SOL ONE (17:53)
--- NOTE | 2023-11-03 19:19 | P.HP ---
Certification for Inpatient With expected LOS: >2 Midnights Patient will require the following post-hospital care: None Practitioner: I am a practitioner with admitting privileges, knowledge of patient current condition, hospital course, and medical plan of care. Services: Services provided to patient in accordance with Admission requirements found in Title 42 Section 412.3 of the Code of Federal Regulations Patient History Date of Service: 11/03/23 Reason for admission: Cough and hemoptysis History of Present Illness: 58-year-old male with past medical history of COPD, follows with Dr. Castro, prostate cancer, not on any therapy follows at [facility]; anxiety/depression, chronic tobacco use; who presented to the hospital due to difficulty and with history of recurrent cough with hemoptysis as well as pleuritic left-sided chest pain. Chest pain is more in the side of the chest, worse with coughing but also present even at rest. He stated intensity of pain was worse 5 days ago but seem to be improving. He stated cough is sometimes brown tinge with few blood specks. He states the cough and hemoptysis similar to an episode 5 years ago when he was treated for pneumonia. He has also been having wheezing despite his regular use of his MDI/nebulizer. He states his prostate cancer is relatively stable, he gets regular CT follow- ups. He has a history of lung nodule for which he had a biopsy in the past that was reportedly benign about 10 years ago. He still actively smokes. He states he is nonadherence with his antilipid diabetic as well as his anxiety medication. He does not want them restarted. He is only compliant with his COPD meds. On arrival in the ED vital signs were stable, satting well on room air, CT of the chest shows A 4.6 cm rounded masslike lesion in the left upper lobe with internal areas of cavitation noted. This is new since recent study dated March 27. Differential would include infection and neoplasia. He has been admitted for suspected left upper lobe pneumonia with cavitation and COPD exacerbation Allergies iodine Allergy (Mild, Verified 12/10/11 12:13) Itching/Hives/Rash Home Medications: Albuterol Neb [Proventil 0.083% Neb Soln] TID PRN 12/11/11 Ipratropium [place] BID 12/11/11 Budesonide/Glycopyr/Formoterol [Breztri Aerosphere Inhaler] 5.9 gm IH BID 06/01/22 Gabapentin 300 mg PO TID 06/01/22 Albuterol Neb [Proventil 0.083% Neb Soln] 2.5 mg NEB [id number] PRN #60 amp 06/05/22 Amox/Clavulanate [Augmentin 500-125 mg Tab*] 500 mg PO BID #14 tab 06/05/22 Arformoterol Tartrate [Brovana] 15 mcg NEB BIDRESP #60 vial.neb 06/05/22 Azithromycin Tab [Zithromax*] 500 mg PO DAILY #5 tab 06/05/22 Benzonatate [Tessalon Perle*] 100 mg PO TID PRN #20 cap 06/05/22 Hydrocodone 10/APAP 325 [[place] 10/325] 1 tab PO Q6H PRN #30 tab 06/05/22 Ipratropium Neb [Atrovent*] 0.5 mg NEB [id number] #60 amp 06/05/22 Roflumilast [Daliresp*] 500 mcg PO DAILY #1 tab 06/05/22 hydrOXYzine HCL [Atarax*] 25 mg PO Q8HP #30 tab 06/05/22 predniSONE [Prednisone*] 20 mg PO BID #20 tab 06/05/22 - Past Medical/Surgical History Diabetic: No -: COPD -: Seizure Disorder -: Anxiety disorder Past Surgical History: Patient denies surgical history - Family History Family History: Reviewed- Non-Contributory - Social History Smoking Status: Heavy Tobacco smoker (>10 cigarettes/day) Counseled patient to stop smoking for: less than 10 minutes Smoking therapy provided: No Patient receptive to therapy: No Alcohol use: No CD- Drugs: No Caffeine use: Yes Place of Residence: Home Review of Systems General: Chills ENT: Ear Discharge, Nose Pain Respiratory: Cough, Hemoptysis, Sputum, Wheezing Cardiovascular: Chest Pain Physical Examination - Physical Exam General: Alert, In no apparent distress, Oriented x3, Cooperative HEENT: Atraumatic, Normocephalic, PERRLA Neck: 2+ carotid pulse no bruit, JVD not distended, No Thyromegaly Respiratory: Normal air movement, Expiratory wheezes Cardiovascular: Normal pulses, Regular rate/rhythm, Normal S1 S2 Gastrointestinal: Normal bowel sounds, Soft and benign, Non-distended Musculoskeletal: No clubbing, No swelling Neurological: Normal speech, Normal strength at 5/5 x4 extr, Sensation intact, Cranial nerves 3-12 intact - Studies Laboratory Data (last 24 hrs) 11/03/23 11/03/23 11/03/23 15:50 15:50 15:50 WBC 11.50 H Hgb 15.8 Hct 48.0 Plt Count 345 PT 12.2 INR 1.09 Sodium 132 L Potassium 4.1 BUN 7 Creatinine 0.82 Glucose 100 Total Bilirubin 0.8 AST < 10 L ALT 18 Alkaline Phosphatase 157 H Assessment and Plan - Problems (Diagnosis) (1) Left lower lobe pneumonia Current Visit: Yes Status: Acute (2) Hemoptysis Current Visit: Yes Status: Acute (3) Prostate cancer Current Visit: Yes Status: Acute (4) COPD exacerbation Current Visit: No Status: Acute - Plan Impression Hemoptysisdue to cavitary lung lesion Cavitatary left lung mass likely due to complicated pneumonia COPD with acute exacerbation History of anxiety History of chronic tobacco use History of prostate canceron close monitoring Plan Will admit patient to inpatient status Pulmonary consult with Gloria Ford Patient might need bronchoscopy Start empirical antibiotics with cefepime/Vanco DuoNebs every 6 hours No steroids for now since suspected underlying pneumonia Obtain sputum for culture and sensitivity Pain control for pleuritic chest pain Add Ativan as needed for anxiety, patient refusing previous home medication for anxiety Lovenox for DVT prophylaxis but hold dose tonight for possible bronc in a.m. Full code Disposition possible hospital stay for more than 48 hours Nicotine patch, smoking cessation advised Discharge Plan: Home - Advance Directives Does patient have a Living Will: No Does patient have a Durable POA for Healthcare: No - Code Status/Comfort Care Code Status: Full Code Physician Review: Patient Assessed, Agree with Above Assessment and Plan Time Spent Managing Pts Care (In Minutes): 65
[2023-11-03] MEDS ORDERED: ONDANSETRON 4 MG/2 ML VIAL IV PRN (19:24)
[2023-11-03] MEDS ORDERED: ACETAMINOPHEN 500 MG TAB PO PRN (19:24)
[2023-11-03] MEDS ORDERED: MORPHINE 2 MG/ML SYR IV PRN ×2 (19:24→21:52)
[2023-11-03] MEDS ORDERED: HYDROCODONE/APAP 10/325 TAB PO PRN (19:26)
[2023-11-03] MEDS ORDERED: LORAZEPAM 0.5 MG TABLET PO PRN (19:27)
[2023-11-03] MEDS ORDERED: HYDRALAZINE HCL 20 MG/ML VIAL IV PRN (19:27)
[2023-11-03] MEDS ORDERED: VANCOMYCIN 1 GM in NA CHLORIDE 0.9% 250 ML IVPB SCH (21:00)
[2023-11-03] MEDS ORDERED: CEFEPIME 1 GM in NA CHLORIDE 0.9% 100 ML IV SCH (21:00)
[2023-11-03] MEDS: NA CHLORIDE 0.9% 500 ML ONE (21:57)
[2023-11-03] MEDS: VANCOMYCIN 1 GM/VIAL ONE (21:58)
[2023-11-03] MEDS: GABAPENTIN 300 MG CAP PO SCH (22:08)
[2023-11-03] MEDS: GUAIFENESIN 600 MG SA TAB PO SCH (22:09)
[2023-11-03] MEDS: NA CHLORIDE 0.9% 1,000 ML IV SCH (22:13)
[2023-11-03] MEDS: VANCOMYCIN 2 GM in NA CHLORIDE 0.9% 500 ML IVPB ONE (22:15)
[2023-11-03] MEDS: IPRATROPIUM BROM 0.5MG/2.5ML NEB SCH (22:27)
[2023-11-03] MEDS: LORAZEPAM 0.5 MG TABLET PO PRN (23:02)
[2023-11-03 23:44] VITALS: BMI 25.1
[2023-11-04] MEDS: ALBUTEROL 2.5 MG/3 ML NEB SOL NEB PRN (03:15)
[2023-11-04 05:42] LABS: Absolute Basophils 0.1 K/uL (0-0.5); Absolute Eosinophils 0.2 K/uL (0-0.5); Absolute Lymphocytes (CBC) 1.3 K/uL (0.7-4.9); Absolute Monocytes 1.4 K/uL (0.1-1.3); Absolute Neutrophil 6.9 K/uL (1.8-8.0); Basophils % 0.6 % (0-1.3); Eosinophils % 2.3 % (0-4.4); Hematocrit 42.3 % (39.6-49.0); Hemoglobin 14.4 g/dL (13.6-17.9); MCH 34.1 pg (27.0-35.0); MCHC 33.9 g/dL (32.0-36.0); MCV 100.5 fL (80-100); MPV 7.7 fL (7.6-11.3); Neutrophils % 70.1 % (41.7-73.7); Platelets 312 thou/uL (152-406); RBC Red Blood Cell Count 4.21 M/uL (4.33-5.43); Red Cell Distribution Width 13.4 % (12.1-15.2)
[2023-11-04 05:57] LABS: Albumin 2.8 g/dL (3.4-5.0); Albumin/Globulin Ratio 0.7 (1.1-1.8); Anion Gap 11.8 mEq/L (5.0-15.0); Globulin 3.9 g/dL (2.3-3.5); Potassium 3.8 mEq/L (3.5-5.1); Protein, Total 6.7 g/dL (6.4-8.2)
[2023-11-04] MEDS: ROFLUMILAST 500 MCG TABLET PO SCH (07:45)
[2023-11-04] MEDS: CEFEPIME 1 GM in NA CHLORIDE 0.9% 100 ML IV SCH (07:45)
[2023-11-04] MEDS: NICOTINE 21 MG/PAT TD SCH (07:45)
--- NOTE | 2023-11-04 07:50 | P.PN ---
Date of Service: 11/04/23 Subjective: dealing with cough, left-sided pleuritic chest pain for last few days coughing up blood tinged sputum over the last week reports no recent sick contacts, no recent travel afebrile ROS: 10 point ROS as noted above, otherwise negative Physical Exam: GEN: Alert, oriented, NAD HEENT: Normal conjunctiva, sclera anicteric CV: Regular rate and rhythm, no edema Pulm: Nonlabored respirations on room air, +cough, +expiratory wheeze ABD: Soft, nontender, nondistended Neuro: Normal speech, normal affect vitals reviewed Problem List: 4.6 cm Cavitary LEXUS lesion Hemoptysis Acute on chronic COPD exacerbation Chronic tobacco use Hx prostate cancer hx seizure disorder 4.6 cm Cavitary LEXUS lesion Hemoptysis Acute on chronic COPD exacerbation presents with hemoptysis, recurrent cough, pleuritic left-sded chest pain - worsened with cough. +wheeze had similar episodes ~5 years ago when he was treated for pneumonia. hx of lung nodule 10+ years ago; had biopsy that was reportedly benign CT 1 month ago at [facility] noted left lung nodule per patient CTA chest (11/02): 4.6 cm masslike lesion in LEXUS with internal areas of cavitation noted. New since Mar [address] Donaldson, Pulm, consulted - recommend FNA to further eval Continue empiric vanc /cefepime (11/02-) afebrile, leukocytosis resolved follow blood cultures duonebs, daliresp, mucinex, tessalon perles pain control Chronic tobacco use cessation advised. Nicoderm patch added Hx prostate cancer Not currently on treatment per ER notes. Gets regular follow up CTs. continue supportive care hx seizure disorder continue home gabapentin VTE: Code: Full Dispo: Home, ~2-3 days Pending improvement, cultures, pulm recs Time Spent Managing Pts Care (In Minutes): 41
[2023-11-04] MEDS: HYDROCODONE/APAP 10/325 TAB PO PRN (10:25)
[2023-11-04] MEDS: BENZONATATE 100 MG CAP PO PRN (10:26)
[2023-11-04] MEDS: VANCOMYCIN 1.5 GM in NA CHLORIDE 0.9% 500 ML IVPB SCH (10:26)
--- NOTE | 2023-11-04 10:28 | P.CNS ---
Date of Consult: 11/04/23 Reason for Consult: Left upper lobe lung mass hemoptysis Chief Complaint: Cough and hemoptysis History of Present Illness: Patient is 58 years of age admitted with 1 week history of left-sided pleuritic chest pain cough associated with hemoptysis any fever or chills was found to have a left upper lobe lung mass complaining of wheezing patient is an active smoker Allergies iodine Allergy (Mild, Verified 12/10/11 12:13) Itching/Hives/Rash Home Medications: Budesonide/Glycopyr/Formoterol [Breztri Aerosphere Inhaler] 5.9 gm IH BID 06/01/22 Gabapentin 300 mg PO DAILY 06/01/22 Albuterol Neb [Proventil 0.083% Neb Soln] 2.5 mg NEB [id number] PRN #60 amp 06/05/22 Ipratropium Neb [Atrovent*] 0.5 mg NEB [id number] #60 amp 06/05/22 Roflumilast [Daliresp*] 500 mcg PO DAILY #1 tab 06/05/22 predniSONE [Prednisone*] 10 mg PO DAILY 11/03/23 - Past Medical/Surgical History Diabetic: No -: COPD -: Seizure Disorder -: Anxiety disorder -: History of prostate cancer - Social History Smoking Status: Current every day smoker Alcohol use: No CD- Drugs: No Caffeine use: Yes Place of Residence: Home Review of Systems 10-point ROS is otherwise unremarkable General: Weakness Respiratory: Cough, Shortness of Breath, Hemoptysis Physical Examination Temp Pulse Resp BP Pulse Ox 98.6 F 89 16 133/71 96 11/04/23 08:00 11/04/23 08:00 11/04/23 08:00 11/04/23 08:00 11/04/23 08:00 General: Alert, Oriented x3 Respiratory: Expiratory wheezes Cardiovascular: No edema, Regular rate/rhythm, Normal S1 S2 Gastrointestinal: Normal bowel sounds, Soft and benign Musculoskeletal: No clubbing, No swelling Laboratory Data (last 24 hrs) 11/03/23 11/03/23 11/03/23 15:50 15:50 15:50 WBC 11.50 H Hgb 15.8 Hct 48.0 Plt Count 345 PT 12.2 INR 1.09 Sodium 132 L Potassium 4.1 BUN 7 Creatinine 0.82 Glucose 100 Total Bilirubin 0.8 AST < 10 L ALT 18 Alkaline Phosphatase 157 H - Problems (1) Lung mass Current Visit: Yes Status: Acute Plan: Patient is 58 years of age with a history of COPD prostate cancer admitted with 1 week history of hemoptysis left-sided chest pain have a 4 cm left upper lobe very peripheral lung mass with areas of lucency chemistries reviewed white count is normal probably inflammatory to p.o. antibiotics DC IV fluid will need an FNA for rapid diagnosis specimen for AFB fungus allergy and culture resume Breztri nebulized ipratropium every 4 hours with the patient regarding FNA the risk of bleeding infection and lung collapse patient agrees to the procedure
[2023-11-04] MEDS: **PT MED**Budesonide/Glycopyr/Formoterol [Breztri Aerosphere Inhaler] 10.7 GM Hfa IH SCH (11:54)
[2023-11-04] MEDS: IPRATROPIUM BROM 0.5MG/2.5ML NEB SCH (13:17)
[2023-11-05] MEDS: MIDAZOLAM HCL 2 MG/2 ML INJ ONE (08:41)
[2023-11-05] MEDS: FENTANYL CITR 100 MCG/2 ML ONE (08:41)
[2023-11-05] MEDS: NALOXONE HCL 2 MG/2 ML VIAL ONE (08:41)
[2023-11-05] MEDS: FLUMAZENIL 0.1 MG/ML (5 mL VIAL) IV ONE (08:41)
[2023-11-05] MEDS ORDERED: ENOXAPARIN 40 MG/0.4 ML SQ SCH (09:00)
[2023-11-05] MEDS: NA CHLORIDE 0.9% 1,000 ML ONE (09:32)
[2023-11-05] MEDS: AMOX/K CLAV 875 MG TAB PO SCH (10:37)
[2023-11-05] MEDS: DOXYCYCLINE 100 MG CAP PO SCH (10:38)
--- NOTE | 2023-11-05 12:26 | RAD REPORT ---
EXAM DESCRIPTION: RADChest Single View11/05/2023 10:28 am CLINICAL HISTORY: post lung bx COMPARISON: Chest Single View dated 06/01/2022; Chest Pa And Lat (2 Views) dated 01/25/2021; Chest Pa And Lat (2 Views) dated 04/01/2019; Chest Pa And Lat (2 Views) dated 02/21/2018; Chest For Pe Angio d ated 11/03/2023 TECHNIQUE: Portable AP view of the chest. FINDINGS: Focal left mid lung opacity corresponds to the biopsied lesion. No appreciable pneumothor ax or effusion. The cardiomediastinal contours are unremarkable. IMPRESSION: No evidence of pneumothorax. Focal left midlung opacity corresponds to the biopsied lesi on.
--- NOTE | 2023-11-05 12:31 | RAD REPORT ---
EXAM DESCRIPTION: CT - Lung Biopsy Perc w/CT - 11/05/2023 10:39 am CLINICAL HISTORY: left lung mass COMPARISON: Chest For Pe Angio dated 11/03/2023 FINDINGS: Preoperative diagnosis: Left lung mass Post operative diagnosis: Same Conscious Sedation: A total of 1 milligram Versed and 100 microgram fentanyl were administered intrav enously. Total sedation time: 20 minutes. Patient was continuously monitored by nursing staff. Contrast used: NONE Estimated blood loss: less than 5 mL Specimens: As below Informed consent was obtained following discussion of the risks and benefits with the patient. The pa tient was placed in a supine position on the CT table and the left upper chest area was prepped and d raped in the usual sterile fashion. 1% lidocaine was infiltrated into the subcutaneous tissues for lo radha anesthesia. Under computed tomographic guidance, a 17 gauge introducer was advanced into the left lung lesion of concern, which today demonstrates central cavitation with an air-fluid level, and mil dly progressive adjacent groundglass airspace opacification. Subsequently, an 18 gauge, 20 mm throw c ore biopsy gun was advanced into the lesion and 5 soft tissue cores were obtained. Postprocedure imaging demonstrated trace pleural air at the level of the knee lesion, with no other s ignificant complications. Samples were given to pathology for analysis. The patient tolerated the pro cedure without immediate complication and transferred to the recovery room in stable condition. IMPRESSION: Successful CT-guided left lung mass biopsy as above. All CT scans are performed using dose optimization technique as appropriate and may include automated exposure control or mA/KV adjustment according to patient size.
--- NOTE | 2023-11-05 12:41 | EKG ---
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
--- NOTE | 2023-11-05 13:01 | RAD REPORT ---
EXAM DESCRIPTION: RAD - Chest Single View - 11/05/2023 12:53 pm CLINICAL HISTORY: s/p lung bx Chest pain. COMPARISON: <Comparisons> FINDINGS: Portable technique limits examination quality. Moderate left mid lung opacity is present, unchanged. No measurable pneumothorax is seen. The right l rufina is grossly clear. The heart is normal in size. No displaced fractures. IMPRESSION: No measurable pneumothorax is seen.
--- NOTE | 2023-11-05 17:01 | P.PN ---
Subjective Date of Service: 11/05/23 Chief Complaint: Cough and hemoptysis Patient is complaining of chest pain at the site of CT-guided biopsy on his anterior chest. He denies shortness of breath. Physical Examination - Vital Signs Temperature: 98.7 F Blood Pressure: 151/66 Pulse: 92 Respirations: 16 Pulse Ox (%): 98 Assessment And Plan - Plan Physical Exam: GEN: Alert, oriented, NAD HEENT: Normal conjunctiva, sclera anicteric CV: Regular rate and rhythm, no edema Pulm: Nonlabored respirations on room air, clear to auscultation bilaterally. ABD: Soft, nontender, nondistended Neuro: Normal speech, no focal motor deficit. vitals reviewed Diagnosis 4.6 cm Cavitary LEXUS lesion Hemoptysis Acute on chronic COPD exacerbation Chronic tobacco use Hx prostate cancer hx seizure disorder Plan: 4.6 cm Cavitary LEXUS lesion Hemoptysis Acute on chronic COPD exacerbation Pleuritic chest pain hx of lung nodule 10+ years ago; had biopsy that was reportedly benign CT 1 month ago at [facility] noted left lung nodule per patient CTA chest (11/02): 4.6 cm masslike lesion in LEXUS with internal areas of cavitation noted. New since Mar [address] Donaldson, Pulm is following. Status post CT-guided biopsy Continue empiric vanc /cefepime (11/02-) Blood cultures: No growth to date Continue duonebs, daliresp, mucinex, tessalon perles Analgesics as needed. Repeat chest x-ray tonight and tomorrow morning. Chronic tobacco use cessation advised. Nicoderm patch Hx prostate cancer Not currently on treatment per ER notes. Gets regular follow up CTs. Follow-up as outpatient. hx seizure disorder continue home gabapentin VTE: Code: Full Dispo: Home.
--- NOTE | 2023-11-05 18:54 | RAD REPORT ---
EXAM DESCRIPTION: RAD - Chest Single View - 11/05/2023 6:47 pm CLINICAL HISTORY: Follow up CT guided lung biopsy Chest pain. COMPARISON: <Comparisons> FINDINGS: Portable technique limits examination quality. Left mid lung opacity is again noted without significant change. No measurable pneumothorax. Right michael ng is grossly clear. The heart is normal in size. No displaced fractures. IMPRESSION: No measurable left-sided pneumothorax.
--- NOTE | 2023-11-06 08:38 | P.PN ---
Subjective Date of Service: 11/06/23 Chief Complaint: Cough and hemoptysis Change in patient's condition is still complains of significant amount of pain productive cough with hemoptysis status post FNA Review of Systems Respiratory: Cough, Shortness of Breath, Hemoptysis Cardiovascular: Chest Pain Physical Examination - Vital Signs Temperature: 97.6 F Blood Pressure: 120/63 Pulse: 87 Respirations: 16 Pulse Ox (%): 98 - Physical Exam General: Alert, Oriented x3, Mild distress Respiratory: Expiratory wheezes Cardiovascular: No edema, Regular rate/rhythm Gastrointestinal: Normal bowel sounds, Soft and benign Musculoskeletal: No clubbing Assessment And Plan - Current Problems (Diagnosis) (1) Lung mass Current Visit: Yes Status: Acute Plan: Patient is 58 years of age status post FNA for sided lower lobe lung mass continues to have productive cough with phlegm sputum cultures change lead to IV Zosyn for now continue with doxycycline and relief repeat chest x-ray FNA results pending pending signs oxygenation satisfactory no evidence of pneumothorax Physician Review: Patient Assessed, Agree with Above Assessment and Plan
[2023-11-06] MEDS: PIPER TAZO 3.375 GM in NA CHLORIDE 0.9% 100 ML IV SCH (09:10)
--- NOTE | 2023-11-06 09:13 | RAD REPORT ---
EXAM DESCRIPTION: RAD - Chest Single View - 11/06/2023 9:06 am CLINICAL HISTORY: SP FNA Chest pain. COMPARISON: Chest Single View dated 11/05/2023; Chest Single View dated 11/05/2023; Chest Single View da marnie 11/05/2023; Chest Single View dated 06/01/2022 FINDINGS: Portable technique limits examination quality. Moderate rounded size left mid lung opacity is stable since comparative imaging. The lungs are otherw ise clear. No measurable pneumothorax evident. The heart is normal in size. No displaced fractures.
[2023-11-06 09:55] VITALS: O2SAT 98
--- NOTE | 2023-11-06 10:55 | P.DS ---
Admission Date: 11/03/23 Discharge Date: 11/06/23 Disposition: ROUTINE DISCHARGE Discharge Condition: FAIR Reason for Admission: Cough and hemoptysis Brief History of Present Illness: 58-year-old male with past medical history of COPD, follows with Dr. Donaldson, prostate cancer, not on any therapy and being followed at [facility], chronic tobacco use, presented to the hospital due to shortness of breath, recurrent cough with hemoptysis as well as pleuritic left-sided chest pain. He reported a similar episode of cough and hemoptysis about 5 years ago which was treated as pneumonia. He states his prostate cancer is relatively stable, he gets regular CT follow- ups. He has a history of lung nodule for which he had a biopsy in the past that was reportedly benign about 10 years ago. Patient continues to smoke cigarettes. In the ED, CT of the chest showed A 4.6 cm rounded masslike lesion in the left upper lobe with internal areas of cavitation noted. This is new since recent study dated March 27. Differential would include infection and neoplasia. He was admitted for further management of left upper lobe pneumonia with cavitation and COPD exacerbation and to evaluate for neoplasia. Hospital Course: Patient was admitted to the medical floor and the following medical problems addressed: Diagnosis 4.6 cm Cavitary LEXUS lesion Hemoptysis Acute on chronic COPD exacerbation Chronic tobacco use Hx prostate cancer hx seizure disorder 4.6 cm Cavitary LEXUS lesion Hemoptysis Acute on chronic COPD exacerbation Pleuritic chest pain hx of lung nodule 10+ years ago; had biopsy that was reportedly benign CT 1 month ago at [facility] noted left lung nodule per patient CTA chest (11/02): 4.6 cm masslike lesion in LEXUS with internal areas of cavitation noted. New since Mar 27 study. no PE. Pulmonary Dr. Donaldson evaluated patient and recommended CT-guided biopsy of the lung mass. Status post CT-guided biopsy, pathology is pending to be followed as outpatient. Serial chest x-rays after the biopsy did not show any pneumothorax or complication. Patient was treated with empiric vanc /cefepime and discharged with oral Augmentin and doxycycline Blood cultures: No growth to date He was treated for COPD exacerbation with duonebs, daliresp, mucinex, tessalon perles. Patient has been informed to follow-up with Dr. Donaldson regarding the lung biopsy result. Chronic tobacco use cessation advised. Hx prostate cancer Not currently on treatment per ER notes. Gets regular follow up CTs. Follow-up as outpatient. hx seizure disorder continued home gabapentin. Vital Signs/Physical Exam: Temp Pulse Resp BP Pulse Ox 97.6 F 87 18 120/63 98 11/06/23 08:38 11/06/23 08:38 11/06/23 09:00 11/06/23 08:38 11/06/23 09:00 General: Alert, In no apparent distress, Oriented x3 HEENT: Mucous membr. moist/pink Neck: Supple, JVD not distended Respiratory: Clear to auscultation bilaterally, Other (Diminished breath sounds bilaterally) Cardiovascular: No edema, Regular rate/rhythm, Normal S1 S2 Gastrointestinal: Normal bowel sounds, Soft and benign, Non-distended, No tenderness Musculoskeletal: No swelling, No tenderness Integumentary: No rashes, No cyanosis Neurological: Normal speech, Normal strength at 5/5 x4 extr Laboratory Data at Discharge: WBC 9.90 thou/uL (4.3-10.9) 11/04/23 04:13 Hgb 14.4 g/dL (13.6-17.9) D 11/04/23 04:13 Hct 42.3 % (39.6-49.0) 11/04/23 04:13 Plt Count 312 thou/uL (152-406) 11/04/23 04:13 PT 12.2 SECONDS (9.4-12.5) 11/03/23 15:50 INR 1.09 11/03/23 15:50 Sodium 133 mEq/L (136-145) L 11/04/23 04:13 Potassium 3.8 mEq/L (3.5-5.1) 11/04/23 04:13 BUN 6 mg/dL (7-18) L 11/04/23 04:13 Creatinine 0.67 mg/dL (0.70-1.30) L 11/04/23 04:13 Glucose 84 mg/dL (74-106) 11/04/23 04:13 Total Bilirubin 1.0 mg/dL (0.2-1.0) 11/04/23 04:13 AST 11 U/L (15-37) L 11/04/23 04:13 ALT 16 U/L (16-61) 11/04/23 04:13 Alkaline Phosphatase 126 U/L (45-117) H 11/04/23 04:13 Triglycerides 74 mg/dL (<150) 11/04/23 04:13 Cholesterol 149 mg/dL (<200) 11/04/23 04:13 HDL Cholesterol 54 mg/dL (40-60) 11/04/23 04:13 Cholesterol/HDL Ratio 2.76 11/04/23 04:13 Home Medications: Budesonide/Glycopyr/Formoterol [Breztri Aerosphere Inhaler] 5.9 gm IH BID 06/01/22 Gabapentin 300 mg PO DAILY 06/01/22 Albuterol Neb [Proventil 0.083% Neb Soln] 2.5 mg NEB [id number] PRN #60 amp 06/05/22 Ipratropium Neb [Atrovent*] 0.5 mg NEB [id number] #60 amp 06/05/22 Roflumilast [Daliresp*] 500 mcg PO DAILY #1 tab 06/05/22 predniSONE [Prednisone*] 10 mg PO DAILY 11/03/23 Amox/Clavulanate [Augmentin 875-125 Tab] 1 each PO BID #14 tab 11/06/23 Benzonatate [Tessalon Perle*] 100 mg PO Q6H PRN #30 cap 11/06/23 Doxycycline Hyclate 100 mg PO BID #14 cap 11/06/23 Guaifenesin [Mucinex] 1,200 mg PO BID #40 tab 11/06/23 Hydrocodone 10/APAP 325 [Plover 10/325*] 1 tab PO Q6H PRN #15 tab 11/06/23 New Medications: Amox/Clavulanate [Augmentin 875-125 Tab] 1 each PO BID #14 tab Doxycycline Hyclate 100 mg PO BID #14 cap Guaifenesin [Mucinex] 1,200 mg PO BID #40 tab Hydrocodone 10/APAP 325 [Plover 10/325*] 1 tab PO Q6H PRN #15 tab PRN Reason: Pain Scale 5-7 (Moderate) Benzonatate [Tessalon Perle*] 100 mg PO Q6H PRN #30 cap PRN Reason: Cough Followup: ABBEY KUNZ [Primary Care Provider] - Time spent managing pt's care (in minutes): 36
[2023-11-06 12:37] VITALS: BP 127/64; TEMP 98
== END 2023-11-06 13:50 | disposition home or self-care (01) | DRG 190 ==
LOC: ER 13:56 → ERHOLD 19:24 → 4TH 20:54
PROVIDERS: ADMIT Internal Medicine; ATTEND Internal Medicine
PROC: 0BBK3ZX Excision of Right Lung, Percutaneous Approach, Diagnostic (ICD-10-PCS; principal; 2023-11-05)
DX: J44.1 Chronic obstructive pulmonary disease with (acute) exacerbation (principal); J18.9 Pneumonia, unspecified organism; R04.2 Hemoptysis; A15.0 Tuberculosis of lung; J44.0 Chronic obstructive pulmonary disease with (acute) lower respiratory infection; F41.9 Anxiety disorder, unspecified; G40.909 Epilepsy, unspecified, not intractable, without status epilepticus; C61 Malignant neoplasm of prostate; F17.210 Nicotine dependence, cigarettes, uncomplicated; Z88.5 Allergy status to narcotic agent; Z79.52 Long term (current) use of systemic steroids; Z79.899 Other long term (current) drug therapy
CPT/HCPCS: 36415; 71045; 71275; 77012; 80048; 80053; 80061; 80076; 83880; 84484; 85025; 85610; 87040; 88305; 93005; 94640; 96365; 99285; J0692; J2250; J2270; J2310; J2543; J3010; J7030; J7040; J7613; J7644; Q9967

== ENCOUNTER 2024-05-05 12:31 | Inpatient (IN) | payer OTHER ==
--- OUTSIDE RECORDS SUMMARY | 2024-05-05 12:37 | XMS REPORT | Continuity of Care Document ---
Author Name Unknown Address [address] [facility] [address] [place] [address] [facility] Address [address] [facility] 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 Name Role Phone Pinky Donaldson MD Primary Care Physician OSMANY SUTTON Attending Clinician Jen tracieilable OPAL AMIN Attending Clinician Unavailab le Lab, Lcc Attending Clinician Unavailable Osmany Sutton MD Attending Clinician PINKY DONALDSON Attending Clinician Unavailab le Pinky Donaldson Attending Clinician [phone] Doctor Unassigned, [place] Attending Clinician U gianna Lab, Lcc Attending Clinician Unavailable Osmany Sutton MD Attending Clinician Pinky Donaldson Attending Clinician [phone] Doctor Unassigned, [place] Attending Clinician U Niurka Esteves MD Attending Clinician [phone] TATIANNA GORDILLO Attending Clinician Unavailable Tatianna Kamara Attending Clinician [phone] NIURKA RODRIGUEZ Attending Clinician Unavailable Lab, Ang - Db Attending Clinician Unavailable WANDY GRIGGS Attending Clinician Unavailable PINKY DONALDSON Admitting Clinician UnavailOSMANY Blair Admitting Clinician ZACK Parks Admitting Clinician Unavailable NIURKA RODRIGUEZ Admitting Clinician Unavailable Payers Payer Name Policy Type Policy Number Effective Date Expirati on Date Source [facility] [id number] 2022 00:00:00 Problems Condition Name Condition Details Condition Category Status Onset Date Resolution Date Last Treatment Date Treating Clinician Comments Source Prostate mass Prostate mass Disease Active 4-20 00:00: 00 [facility] Elevated PSA Elevated PSA Disease Active 420 00:00: 00 [facility] History of claustroph obia History of claustroph obia Disease Active 3-17 00:00: 00 [facility] Colon cancer screening Colon cancer screening Disease Active 2017-03 00:00: 00 Overview: Formattin g of this note might be different from the original. Added automatic ally from request for surgery [id number] [facility] Chronic diarrhea Chronic diarrhea Disease Active 2017-03 00:00: 00 Overview: Formattin g of this note might be different from the original. Added automatic ally from request for surgery [id number] [facility] Rectal bleeding Rectal bleeding Disease Active 2017-03 00:00: 00 Overview: Formattin g of this note might be different from the original. Added automatic ally from request for surgery [id number] [facility] Abdominal pain, left lower quadrant Abdominal pain, left lower quadrant Disease Active 2017-03 00:00: 00 Overview: Formattin g of this note might be different from the original. Added automatic ally from request for surgery [id number] [facility] Allergies, Adverse Reactions, Alerts Allergy Name Allergy Type Status Severity Reaction(s) Onset Date Inactive Date Treating Clinician Comments Source NO KNOWN ALLERGIE S Drug Class Active [facility] Social History Social Habit Start Date Stop Date Quantity Comments Source History of tobacco use Cigarette Smoker [facility] Gender identity [facility] of Social function 2024-04-07 00:00:00 2024-04-07 00:00:00 [facility] Exposure to SARS-CoV-2 (event) 2022-07-06 00:00:00 2022-07-16 11:05:00 Not sure [facility] Tobacco use and exposure 2022-06-21 00:00:00 2022-06-21 00:00:00 Smokeless tobacco non-user [facility] Sex assigned at 1965 00:00:00 1965 00:00:00 [facility] Smoking Status Start Date Stop Date Source Tobacco smoking consumption unknown [facility] Smokes tobacco daily 2022-06-21 00:00:00 [facility] Medications Ordered Medication Name Filled Medication Name Start Date Stop Date Current Medication? Ordering Clinician Indication Dosage Frequency Signature (SIG) Comments Components Source Nicoderm CQ 14 mg/24 hr daily transdermal patch 03-17 00:00: 00 Yes 1mg/24 hr Ye Segal prednisone 10 mg tablet 03-17 00:00: 00 Yes 1mg Ye Segal nicotine 14 mg/24 hr patch 03-13 00:00: 00 Yes APPLY 1 PATCH EVERY DAY. [facility] ipratropium bromide 0.02 % solution for inhalation 11-14 00:00: 00 Yes 1% Ye Segal albuterol sulfate 2.5 mg/3 mL (0.083 %) solution for nebulizatio n 11-14 00:00: 00 Yes /3 mL (0.083 %) Ye Segal albuterol sulfate 2.5 mg/3 mL (0.083 %) solution for nebulizatio n 11-10 00:00: 00 Yes /3 mL (0.083 %) Ye Segal loratadine 10 mg tablet 11-10 00:00: 00 Yes 1mg Ye Segal Daliresp 250 mcg tablet 11-10 00:00: 00 Yes 1mcg Ye Segal DOXYCYCL HYC 100MG 11-05 00:00: 00 Yes 100 Ye Segal HYDROCO/APA P 10-325MG 11-05 00:00: 00 Yes Ye Segal BENZONATATE 100MG 0 -04 00:00: 00 Yes 100 Ye Segal AMOX/K CLAV 909-588 3117-0 9-04 00:00: 00 Yes Ye Segal TAKE 1 TABLET BY MOUTH DAILY 0 -30 00:00: 00 Yes 10 Ye Segla NICOTINE TD 14MG/24H DIS 0 -30 00:00: 00 Yes 14 Ye Segal ATORVASTATI N 20MG 2023-0 6-10 00:00: 00 Yes 20 Ye Segal ROFLUMILAST 500MCG 0 5-06 00:00: 00 Yes [id number] Ye Segal GABAPENTIN 300MG(N) 0 4-10 00:00: 00 Yes [id number] Ye Segal ipratropium bromide 0.02 % solution for inhalation 0 -03 00:00: 00 Yes 1% Ye Segal albuterol sulfate 2.5 mg/3 mL (0.083 %) solution for nebulizatio n 0 - 00:00: 00 Yes /3 mL (0.083 %) Ye Segal atorvastati n 20 mg tablet 0 4-03 00:00: 00 Yes 1mg Ye Segal loratadine 10 mg tablet 0 4-03 00:00: 00 Yes 1mg Ye Segal Daliresp 250 mcg tablet 0 4-03 00:00: 00 Yes 1mcg Ye Segal gabapentin 300 mg capsule 0 4-03 00:00: 00 Yes 1mg Ye Segal ALBUTER 3ML 0.083% 0 3-14 00:00: 00 Yes Ye Segal ROFLUMILAST 500MCG 2023-0 3-14 00:00: 00 Yes Ye Segal BREZTRI AERO SPHERE INH 2023-0 3-14 00:00: 00 Yes Ye Segal LORATADINE 10MG 2023-0 3-14 00:00: 00 Yes Ye Segal DALIRESP 250MCG 2023-0 3-14 00:00: 00 Yes [id number] Ye Segal ATORVASTATI N 20MG 2023-0 3-14 00:00: 00 Yes [id number] Ye Segal gadobenate dimeglumine (MULTIHANCE -20 mL) injection 16.42 mL 05-09 20:00: 00 05-09 19:43 :00 No [id number] .2mL/kg 16.42 mL (0.2 mL/kg ?82.1 kg), Intravenou s, ONCE, 1 dose, On Sat05/10/23 at 1400, Routine [facility] LORazepam (ATIVAN) tablet 2 mg 05-09 18:45: 00 05-09 18:45 :00 No [id number] 2mg 2 mg, Oral, ONCE, 1 dose, On Sat05/10/23 at 1245, Routine [facility] 2 INHALATIONS BID THEN RINSE AND SPIT 04-22 00:00: 00 11-05 00:00 :00 No [id number] Ye Segal ALBUTER 3ML 0.083% 03-27 00:00: 00 Yes Ye Segal CITALOPRAM 20MG - 00:00: 00 Yes Ye Segal GABAPENTIN 300MG - 00:00: 00 Yes Ye Segal NICOTINE TD 7MG/24HR DIS - 00:00: 00 Yes Ye Segal DALIRESP 250MCG - 00:00: 00 Yes [id number] Ye Segal APAP/CODEIN E 300-30MG - 00:00: 00 Yes Ye Segal CYCLOBENZAP R 10MG - 00:00: 00 Yes Ye Segal IPRATROP.02 % INH 25'S FAY 2022-03- 00:00: 00 Yes Ye Segal SIMVASTATIN 40MG 2022-03- 00:00: 00 Yes Ye Segal ATORVASTATI N 20MG 2022-03- 00:00: 00 Yes Ye Segal LORATADINE 10MG 2022-03- 00:00: 00 Yes [id number] Ye Segal IPRATROP.02 % INH 25'S FAY 2022-03- 00:00: 00 Yes Ye Segal ALBUTER 3ML 0.083% 2022-03 00:00: 00 Yes Ye Segal NICOTINE TD 21MG/24H DIS 2022-03 00:00: 00 Yes Ye Segal BREZTRI AERO SPHERE INH 2022-03 00:00: 00 11-05 00:00 :00 No Ye Segal PREDNISONE 10MG 2022-03 00:00: 00 Yes Ye Segal GABAPENTIN 300MG 2022-03 00:00: 00 Yes 300 Ye Segal ALBUTER 3ML 0.083% 2022-03 00:00: 00 Yes Ye Segal IPRATROP.02 % INH 25'S FAY 2022-03 00:00: 00 Yes Ye Segal NICOTINE TD 21MG/24H DIS 2022-03 00:00: 00 Yes [id number] Ye Segal LORATADINE 10MG 2022-03 00:00: 00 Yes 10 Ye Segal TAKE 1 TABLET DAILY. 2022-03 00:00: 00 Yes 500 Ye Segal TAKE 1 TABLET EVERY MORNING. 2022-03 00:00: 00 Yes 10 Ye Segal TAKE 1 TABLET DAILY IN THE EVENING. 2022-03 00:00: 00 Yes 40 Ye Segal TAKE 1 TABLET DAILY. 2022-03 00:00: 00 Yes 20 Ye Segal 1 UNIT DOSE IN NEBULIZER FOUR TIMES PER DAY NEEDED 2022-03 00:00: 00 11-05 00:00 :00 No 2 Ye Segal 2 INHALATIONS BID THEN RINSE AND SPIT 2022-03 00:00: 00 11-05 00:00 :00 No [id number] Ye Segal USE 1 UNIT DOSE EVERY 4-6 HOURS NEEDED FOR WHEEZING . 2022-03 00:00: 00 11-05 00:00 :00 No [id number] Ye Segal TAKE 1 CAPSULE AT BEDTIME. 2022-03 00:00: 00 11-05 00:00 :00 No 300 Ye Segal NICOTINE TD 7MG/24HR DIS 2023-1 0-24 00:00: 00 Yes [id number] Ye Segal 1 UNIT DOSE IN NEBULIZER FOUR TIMES PER DAY NEEDED 2022-03 0-24 00:00: 00 11-05 00:00 :00 No 2 Yemassiel Segal PREDNISONE 10MG 2022-03 0-21 00:00: 00 Yes [id number] Yemassiel Segal DALIRESP 500MCG 2022-03 0-21 00:00: 00 11-05 00:00 :00 No Ye F Philipp IPRATROP.02 % INH 25'S FAY 9-23 00:00: 00 11-05 00:00 :00 No Ey Dixie Segal SIMVASTATIN 40MG 9-23 00:00: 00 11-05 00:00 :00 No Ye Segal TAKE 1 TABLET DAILY. 9-15 00:00: 00 11-05 00:00 :00 No 500 Ye Segal NICOTINE TD 21MG/24H DIS 9-14 00:00: 00 Yes Ye Segal NICOTINE TD 7MG/24HR DIS 9-11 00:00: 00 Yes [id number] Yemassiel Segal ALBUTER 3ML 0.083% 9-11 00:00: 00 11-05 00:00 :00 No Ye Segal DALIRESP 250MCG 8-26 00:00: 00 Yes Ye F Philipp PREDNISONE 10MG 8-26 00:00: 00 Yes Ye Dixie Segal IPRATROP.02 % INH 25'S FAY 8-26 00:00: 00 11-05 00:00 :00 No Ye F Philipp BREZTRI AERO SPHERE INH 8-26 00:00: 00 11-05 00:00 :00 No Ye Dixie Segal NICOTINE TD 7MG/24HR DIS 8-17 00:00: 00 Yes Ye F Philipp ALBUTER 3ML 0.083% 8-14 00:00: 00 11-05 00:00 :00 No Ye Segal 2 INHALATIONS BID THEN RINSE AND SPIT 2023-0 7-31 00:00: 00 11-05 00:00 :00 No [id number] Ye Segal TAKE 1 TABLET DAILY IN THE EVENING. 10-01 00:00: 00 11-05 00:00 :00 No 40 Ye Segal TAKE 1 TABLET EVERY MORNING. 10-01 00:00: 00 11-05 00:00 :00 No 10 Ye Segal USE 1 UNIT DOSE EVERY 4-6 HOURS NEEDED FOR WHEEZING . 10-01 00:00: 00 11-05 00:00 :00 No [id number] Ye Segal 1 UNIT DOSE IN NEBULIZER FOUR TIMES PER DAY NEEDED 10-01 00:00: 00 11-05 00:00 :00 No 2 Ye Segal TAKE 1 CAPSULE AT BEDTIME. 10-01 00:00: 00 11-05 00:00 :00 No 300 Ye Segal CHEW OR SWALLOW 1 TABLET DAILY. 10-01 00:00: 00 11-05 00:00 :00 No 250 Ye Segal SIMVASTATIN 40MG 09-25 00:00: 00 11-05 00:00 :00 No 40 Ye Segal DALIRESP 500MCG 09-07 00:00: 00 11-05 00:00 :00 No Ye Segal BREZTRI AERO SPHERE INH 08-22 00:00: 00 11-05 00:00 :00 No Ye Segal ATORVASTATI N 20MG 6-11 00:00: 00 Yes Ye Segal HYDROXYZ HCL 25MG 22 00:00: 00 Yes Ye Segal PREDNISONE 10MG 5-17 00:00: 00 Yes Ye Segal sodium bicarbonate 8.4 % (1 mEq/mL) injection 07-16 18:47: 08 07-16 18:47 :08 No Slow IV Push, PRN, Starting on Sat07/16/22 at 1347, Until Discontinu ed, Routine, [facility]% (XYLOCAINE) 20 mg/mL (2 %) injection 07-16 18:46: 18 07-16 18:46 :18 No PRN, Starting on Sat07/16/22 at 1346, Until Discontinu ed, Routine, Intra-op [facility] LORazepam (ATIVAN) tablet 07-16 18:15: 00 07-16 18:15 :00 No Oral, PRN, Starting on Sat07/16/22 at 1315, Until Discontinu ed, Routine, Intra-op [facility] ALBUTER 3ML 0.083% 07-12 00:00: 00 11-05 00:00 :00 No Ye Segal IPRATROP.02 % INH 25'S FAY 07-04 00:00: 00 11-05 00:00 :00 No Ye Dixie Philipp CEFDINIR 300MG 06-26 00:00: 00 Yes Ye Segal ARFORMOTERO L 15/2ML 24 00:00: 00 Yes [id number] Ye Segal CEFDINIR 300MG 06-21 00:00: 00 Yes [id number] Ye Segal cefdinir 300 mg capsule 06-21 00:00: 00 Yes 300mg Take 1 capsule by mouth every 12 (twelve) hours. [facility] ATORVASTATI N 20MG 13 00:00: 00 Yes Ye Colin Philipp TAKE 1 TABLET DAILY IN THE EVENING. 06-13 00:00: 00 Yes 20 Ye Segal ipratropium 0.02 % nebulizer solution 06-13 00:00: 00 Yes [facility] BREZTRI AEROSPHERE 160-9-4.8 mcg/actuati on HFAA 06-06 00:00: 00 Yes [facility] TAKE 1 TABLET BY MOUTH EVERY 8 HOURS 06-05 00:00: 00 Yes Ye Dixie Philipp TAKE 1 TABLET BY MOUTH EVERY 6 HOURS NEEDED FOR PAIN 06-05 00:00: 00 Yes Yemassiel Segal AMOX/K CLAV [id number] [id number] 4-04 00:00: 00 Yes Ye Segal AZITHROMYCI N 250MG 06-05 00:00: 00 Yes Ye Segal predniSONE 20 mg tablet 06-05 00:00: 00 Yes [facility] HYDROcodone -acetaminop hen 10-325 mg tablet 06-05 00:00: 00 Yes 1{tbl} Take 1 tablet by mouth every 6 (six) hours as needed. [facility] it[facility] hydrOXYzine 25 mg tablet 06-05 00:00: 00 Yes 25mg Take 1 tablet by mouth every 8 (eight) hours. [facility] ben[facility] mg capsule 06-05 00:00: 00 Yes [facility] arformotero L 15 mcg/2 mL nebulizer solution 06-05 00:00: 00 Yes [facility] LAMOTRIGINE 25MG 05-21 00:00: 00 Yes Ye Segal simvastatin 40 mg tablet 05-21 00:00: 00 Yes [facility] tamsulosin 0.4 mg 24 hr capsule 05-21 00:00: 00 Yes [facility] lamoTRIgine 25 mg tablet 05-21 00:00: 00 Yes [facility] ALBUTER 3ML 0.083% 05-21 00:00: 00 11-05 00:00 :00 No Ye Segal LORazepam (ATIVAN) tablet 2 mg 05-18 16:15: 00 05-18 15:22 :00 No [id number] 2mg 2 mg, Oral, ONCE, 1 dose, On Sat05/18/22 at 1115, Routine [facility] BREZTRI AERO SPHERE INH 04-25 00:00: 00 11-05 00:00 :00 No Ye Segal SIMVASTATIN 40MG - 00:00: 00 11-05 00:00 :00 No Ye Segal ALBUTER 3ML 0.083% 2023-0 2-22 00:00: 00 11-05 00:00 :00 No 83 Ye F Philipp IPRATROPIUM 0.02%INH FAY 2023-0 2-20 00:00: 00 11-05 00:00 :00 No Ye F Philipp TAMSULOSIN 0.4MG 2023-0 2-18 00:00: 00 Yes 400 Ye F Philipp DALIRESP 500MCG 2023-0 2-18 00:00: 00 11-05 00:00 :00 No [id number] Ye F Philipp GABAPENTIN 300MG 2023-0 1-27 00:00: 00 11-05 00:00 :00 No Ye F Philipp BREZTRI AERO SPHERE INH 2023-0 1-26 00:00: 00 11-05 00:00 :00 No Ye F Philipp LORATADINE 10MG 2023-0 1-12 00:00: 00 11-05 00:00 :00 No Ye F Philipp LAMOTRIGINE 25MG 2023-0 1-11 00:00: 00 Yes [id number] Ye F Philipp SIMVASTATIN 20MG 2022-1 1-20 00:00: 00 Yes [id number] Ye F Philipp TAMSULOSIN 0.4MG 2022-1 0-21 00:00: 00 Yes 400 Ye F Philipp GABAPENTIN 300MG 2022-1 0-19 00:00: 00 11-05 00:00 :00 No [id number] Ye F Philipp TAMSULOSIN 0.4MG 2022-0 9-21 00:00: 00 Yes 400 Ye F Philipp SIMVASTATIN 20MG 2022-0 9-21 00:00: 00 Yes [id number] Ye F Philipp DALIRESP 500MCG 2022-0 9-21 00:00: 00 11-05 00:00 :00 No [id number] Ye F Philipp LORATADINE 10MG 2022-0 7-28 00:00: 00 11-05 00:00 :00 No [id number] Ye F Philipp GABAPENTIN 300MG 2022-0 7-27 00:00: 00 11-05 00:00 :00 No [id number] Ye F Philipp DALIRESP 500MCG 2022-0 7-27 00:00: 00 11-05 00:00 :00 No [id number] Ye Segal SIMVASTATIN 20MG 2021-0 7- 00:00: 00 Yes Ye Segal TAMSULOSIN 0.4MG 2021-0 7- 00:00: 00 Yes 400 Ye Segal DALIRESP 500MCG 0 7- 00:00: 00 11-05 00:00 :00 No [id number] Ye Segal ALBUTER 3ML 0.083% 2021-0 6-17 00:00: 00 11-05 00:00 :00 No 83 Ye Segal IPRATROP.02 % INH 25'S FAY 2021-0 6-16 00:00: 00 11-05 00:00 :00 No 20 Ye Segal LAMOTRIGINE 25MG 2021-0 6-01 00:00: 00 Yes [id number] Ye Segal TAMSULOSIN 0.4MG 2021-0 6- 00:00: 00 Yes 400 Ye Segal SIMVASTATIN 20MG 2021-0 5-02 00:00: 00 Yes Ye Segal TAMSULOSIN 0.4MG 2021-0 5-02 00:00: 00 Yes 400 Ye Segal ALBUTER 3ML 0.083% 0 4-25 00:00: 00 11-05 00:00 :00 No 83 Ye Segal peg-electro lyte soln 236-22.74-6 .74 -5.86 gram solution 2017-03 0-24 00:00: 00 Yes Take as directed before colonoscop y [facility] SYMBICORT 160-4.5 mcg/actuati on inhaler 2017-03 00:00: 00 Yes INL 2 PFS PO BID [facility] fluticasone 50 mcg/actuati on nasal spray 2017-03 00:00: 00 Yes SHAKE LQ AND U 1 SPR IEN D [facility] gabapentin 300 mg capsule 2017-03 00:00: 00 Yes TK 1 C PO TID [facility] simvastatin 20 mg tablet 2017-03 00:00: 00 Yes TK 1 T PO HS [facility] albuterol 2.5 mg /3 mL (0.083 %) nebulizer solution 2017-03 0-03 00:00: 00 Yes [facility] DALIRESP 500 mcg tablet 11-14 00:00: 00 Yes TK 1 T PO D [facility] loratadine 10 mg tablet 11-13 00:00: 00 Yes TK 1 T PO QD [facility] Immunizations Ordered Immunization Name Filled Immunization Name Date Status Comments Source SARS-COV-2 COVID-19 PFIZER VACCINE 2023-11-25 08:15:29 Completed [facility] SARS-COV-2 COVID-19 PFIZER VACCINE 2023-09-26 00:00:00 Completed [facility] SARS-COV-2 COVID-19 PFIZER VACCINE 2023-05-10 11:48:53 Completed [facility] SARS-COV-2 COVID-19 PFIZER VACCINE 2023-04-09 09:30:00 Completed [facility] SARS-COV-2 COVID-19 PFIZER VACCINE 2023-04-09 09:00:00 Completed [facility] SARS-COV-2 COVID-19 PFIZER VACCINE 2023-04-09 00:00:00 Completed [facility] SARS-COV-2 COVID-19 PFIZER VACCINE 2020-06-10 00:00:00 Completed [facility] SARS-COV-2 COVID-19 PFIZER VACCINE 2020-06-10 00:00:00 Completed [facility] SARS-COV-2 COVID-19 PFIZER VACCINE 2020-06-10 00:00:00 Completed [facility] SARS-COV-2 COVID-19 PFIZER VACCINE 2020-06-10 00:00:00 Completed [facility] SARS-COV-2 COVID-19 PFIZER VACCINE 2020-06-10 00:00:00 Completed [facility] SARS-COV-2 COVID-19 PFIZER VACCINE 2020-06-10 00:00:00 Completed [facility] SARS-COV-2 COVID-19 PFIZER VACCINE 2020-06-10 00:00:00 Completed [facility] SARS-COV-2 COVID-19 PFIZER VACCINE 2020-06-10 00:00:00 Completed [facility] SARS-COV-2 COVID-19 PFIZER VACCINE 2020-06-10 00:00:00 Completed [facility] SARS-COV-2 COVID-19 PFIZER VACCINE 2020-06-10 00:00:00 Completed [facility] SARS-COV-2 COVID-19 PFIZER VACCINE 2020-06-10 00:00:00 Completed [facility] SARS-COV-2 COVID-19 PFIZER VACCINE 2020-06-10 00:00:00 Completed [facility] SARS-COV-2 COVID-19 PFIZER VACCINE 2020-05-20 00:00:00 Completed [facility] SARS-COV-2 COVID-19 PFIZER VACCINE 2020-05-20 00:00:00 Completed [facility] SARS-COV-2 COVID-19 PFIZER VACCINE 2020-05-20 00:00:00 Completed [facility] SARS-COV-2 COVID-19 PFIZER VACCINE 2020-05-20 00:00:00 Completed [facility] SARS-COV-2 COVID-19 PFIZER VACCINE 2020-05-20 00:00:00 Completed [facility] SARS-COV-2 COVID-19 PFIZER VACCINE 2020-05-20 00:00:00 Completed [facility] SARS-COV-2 COVID-19 PFIZER VACCINE 2020-05-20 00:00:00 Completed [facility] SARS-COV-2 COVID-19 PFIZER VACCINE 2020-05-20 00:00:00 Completed [facility] SARS-COV-2 COVID-19 PFIZER VACCINE 2020-05-20 00:00:00 Completed [facility] SARS-COV-2 COVID-19 PFIZER VACCINE 2020-05-20 00:00:00 Completed [facility] SARS-COV-2 COVID-19 PFIZER VACCINE 2020-05-20 00:00:00 Completed [facility] SARS-COV-2 COVID-19 PFIZER VACCINE 2020-05-20 00:00:00 Completed [facility] Vital Signs Vital Name Observation Time Observation Value Comments S ource Systolic blood pressure 2024-04-07 14:14:00 146 mm[Hg] [facility] Diastolic blood pressure 2024-04-07 14:14:00 77 mm[Hg] [facility] Heart rate 2024-04-07 14:14:00 93 /min [facility] Body temperature 2024-04-07 14:14:00 36.89 Kimberlee [facility] Body height 2024-04-07 14:14:00 177.8 cm [facility] Body weight 2024-04-07 14:14:00 84.188 kg [facility] BMI 2024-04-07 14:14:00 26.63 kg/m2 [facility] Oxygen saturation in Arterial blood by Pulse oximetry 2024-04-07 14:14:00 97 /min [facility] Systolic blood pressure 2023-09-24 13:06:00 127 mm[Hg] [facility] Diastolic blood pressure 2023-09-24 13:06:00 75 mm[Hg] [facility] Heart rate 2023-09-24 13:06:00 79 /min [facility] Body temperature 2023-09-24 13:06:00 36.89 Kimberlee [facility] Respiratory rate 2023-09-24 13:06:00 20 /min [facility] Body height 2023-09-24 13:06:00 177.8 cm [facility] Body weight 2023-09-24 13:06:00 81.285 kg [facility] BMI 2023-09-24 13:06:00 25.71 kg/m2 [facility] Systolic blood pressure 2023-05-10 18:41:00 144 mm[Hg] [facility] Diastolic blood pressure 2023-05-10 18:41:00 89 mm[Hg] [facility] Heart rate 2023-05-10 18:41:00 90 /min [facility] Respiratory rate 2023-05-10 18:41:00 18 /min [facility] Body height 2023-05-10 18:41:00 177.8 cm [facility] Body weight 2023-05-10 18:41:00 82.101 kg [facility] BMI 2023-05-10 18:41:00 25.97 kg/m2 [facility] Oxygen saturation in Arterial blood by Pulse oximetry 2023-05-10 18:41:00 98 /min [facility] Systolic blood pressure 2023-04-09 14:45:00 161 mm[Hg] [facility] Diastolic blood pressure 2023-04-09 14:45:00 80 mm[Hg] [facility] Heart rate 2023-04-09 14:45:00 80 /min [facility] Body temperature 2023-04-09 14:45:00 36.67 Kimberlee [facility] Body height 2023-04-09 14:45:00 177.8 cm [facility] Body weight 2023-04-09 14:45:00 82.101 kg [facility] BMI 2023-04-09 14:45:00 25.97 kg/m2 [facility] Oxygen saturation in Arterial blood by Pulse oximetry 2023-04-09 14:45:00 98 /min [facility] Systolic blood pressure 2022-10-02 18:38:00 138 mm[Hg] [facility] Diastolic blood pressure 2022-10-02 18:38:00 78 mm[Hg] [facility] Heart rate 2022-10-02 18:38:00 80 /min [facility] Body height 2022-10-02 18:38:00 177.8 cm [facility] Body weight 2022-10-02 18:38:00 79.289 kg [facility] BMI 2022-10-02 18:38:00 25.08 kg/m2 [facility] Oxygen saturation in Arterial blood by Pulse oximetry 2022-10-02 18:38:00 95 /min [facility] Systolic blood pressure 2022-07-16 19:00:00 112 mm[Hg] [facility] Diastolic blood pressure 2022-07-16 19:00:00 91 mm[Hg] [facility] Heart rate 2022-07-16 19:00:00 100 /min [facility] Respiratory rate 2022-07-16 19:00:00 18 /min [facility] Oxygen saturation in Arterial blood by Pulse oximetry 2022-07-16 19:00:00 95 /min [facility] Body height 2022-07-16 16:08:00 177.8 cm [facility] Body weight 2022-07-16 16:08:00 79.924 kg [facility] BMI 2022-07-16 16:08:00 25.28 kg/m2 [facility] Body height 2022-05-18 15:17:00 177.8 cm [facility] Body weight 2022-05-18 15:17:00 78.926 kg [facility] BMI 2022-05-18 15:17:00 24.97 kg/m2 [facility] Oxygen saturation in Arterial blood by Pulse oximetry 2022-05-18 15:17:00 98 /min [facility] Systolic blood pressure 2022-05-18 15:17:00 151 mm[Hg] [facility] Diastolic blood pressure 2022-05-18 15:17:00 98 mm[Hg] [facility] Heart rate 2022-05-18 15:17:00 75 /min [facility] Respiratory rate 2022-05-18 15:17:00 18 /min [facility] BP Diastolic 2024-03-17 09:08:00 75 mm[Hg] George phen F Philipp Weight Measured 2024-03-17 09:08:00 184.40 pounds Ye Dixie Segal Height Measured 2024-03-17 09:08:00 70.00 inches Ye F Philipp Body Temperature 2024-03-17 09:08:00 100.40 degrees Ye F [facility] Heart Rate 2024-03-17 09:08:00 96.00 /min [facility]issa en [facility] Respiratory Rate 2024-03-17 09:08:00 Ye F Philipp BP Systolic 2024-03-17 09:08:00 151 mm[Hg] Step hen F Philipp BP Systolic 2023-11-11 11:19:00 123 mm[Hg] Step hen F Philipp BP Diastolic 2023-11-11 11:19:00 84 mm[Hg] George phen F Philipp Weight Measured 2023-11-11 11:19:00 178.00 pounds Ye F Philipp Height Measured 2023-11-11 11:19:00 68.00 inches Ye F Philipp Body Temperature 2023-11-11 11:19:00 97.60 degrees Ye F Philipp Heart Rate 2023-11-11 11:19:00 89.00 /min Charissa en F Philipp Respiratory Rate 2023-11-11 11:19:00 18.00 /min Ye F Philipp BP Systolic 2023-06-05 09:32:00 122 mm[Hg] Step hen F Philipp BP Diastolic 2023-06-05 09:32:00 88 mm[Hg] George phen F Philipp Weight Measured 2023-06-05 09:32:00 177.00 pounds Ye F Philipp Height Measured 2023-06-05 09:32:00 68.00 inches Ye F Philipp Body Temperature 2023-06-05 09:32:00 97.90 degrees Ye F Philipp Heart Rate 2023-06-05 09:32:00 83.00 /min Charissa en F Philipp Respiratory Rate 2023-06-05 09:32:00 20.00 /min Ye F Philipp BP Systolic 2023-01-01 09:31:00 132 mm[Hg] Step hen F Philipp BP Diastolic 2023-01-01 09:31:00 84 mm[Hg] George phen F Philipp Weight Measured 2023-01-01 09:31:00 177.00 pounds Ye F Philipp Height Measured 2023-01-01 09:31:00 68.00 inches Ye F Philipp Body Temperature 2023-01-01 09:31:00 97.60 degrees Ye F Philipp Heart Rate 2023-01-01 09:31:00 87.00 /min Charissa en F Philipp Respiratory Rate 2023-01-01 09:31:00 18.00 /min Ye F Philipp BP Systolic 2022-10-01 11:31:00 130 mm[Hg] Step hen F Philipp BP Diastolic 2022-10-01 11:31:00 83 mm[Hg] George phen F Philipp Weight Measured 2022-10-01 11:31:00 172.80 pounds Ye F Philipp Height Measured 2022-10-01 11:31:00 68.00 inches Ye Segal Body Temperature 2022-10-01 11:31:00 98.70 degrees Ye Segal Heart Rate 2022-10-01 11:31:00 87.00 /min Charissa en Dixie Segal Respiratory Rate 2022-10-01 11:31:00 18.00 /min Ye Segal BP Systolic 2022-06-13 11:14:00 153 mm[Hg] Step hen Dixie Segal BP Diastolic 2022-06-13 11:14:00 84 mm[Hg] George Segal Weight Measured 2022-06-13 11:14:00 173.00 pounds Ye Segal Height Measured 2022-06-13 11:14:00 Ye Segal Body Temperature 2022-06-13 11:14:00 96.61 degrees Ye Segal Heart Rate 2022-06-13 11:14:00 82.00 /min Charissa en Dixie Segal Respiratory Rate 2022-06-13 11:14:00 18.00 /min Ye Segal Procedures Procedure Date / Time Performed Performing Clinician Source XR CHEST 2 VW 2023-11-25 13:23:00 [facility] 2023-09-24 13:48:00 Osmany Sutton [facility] CT LOW DOSE LUNG NODULE 2023-09-17 13:21:55 Pinky Donaldson [facility] PATIENT QUESTIONNAIRE 2023-04-09 06:01:00 Doctor Unassigned, [place] [facility] CT THORAX WO CONTRAST 2022-10-29 15:40:29 Sa luis alfredo Donaldson [facility] PATIENT QUESTIONNAIRE 2022-10-02 05:01:00 Doctor Unassigned, [place] [facility] SURGICAL PATHOLOGY EXAM 2022-07-16 18:53:00 Ishaan Cardoso [facility] ASSIGNMENT OF BENEFITS 2022-04-24 15:44:32 Docto r Unassigned, [place] [facility] SCANNED LAB RESULTS 2022-03-15 06:01:00 Doctor Golden nassignedwar, [place] [facility] Encounters Start Date/Time End Date/Time Encounter Type Admission Type Attending [facility] Facility Care Department Encounter ID Source 2024-04-21 09:30:00 2024-04-21 09:30:00 Outpatient R OPAL AMIN [facility] [id number] [facility] 2024-04-07 11:15:00 2024-04-07 11:30:00 Tong Setter Visit Lab, [facility] Osmany Sutton Lab, [facility] 1.840.114 350.1.13.10 4.2.7.2.686 [id number] [facility] 2024-04-07 08:30:00 2024-04-07 09:13:23 Outpatient R OSMANY SUTTON [facility] [id number] [facility] 2024-04-07 08:30:00 2024-04-07 09:13:23 Office Visit Osmany Sutton [facility] 1.840.114 350.1.13.10 4.2.7.2.686 [id number] [facility] 2024-03-17 09:07:35 2024-03-17 09:07:35 Outpatient SFA [facility] [id number] Ye Segal 2024-03-17 00:00:00 2024-03-17 00:00:00 Outpatient Visit [facility] [id number] Ye Segal 2023-11-25 08:15:29 2023-11-25 23:59:00 Outpatient R PINKY DONALDSON [facility] [id number] [facility] 2023-11-25 08:15:29 2023-11-25 23:59:00 Hospital Encounter Pinky Donaldson [facility] 1.840.114 350.1.13.10 4.2.7.2.686 [id number] [facility] 2023-11-11 11:05:08 2023-11-11 11:05:08 Outpatient SFA [facility] [id number] Ye Segal 2023-11-11 00:00:00 2023-11-11 00:00:00 Outpatient Visit [facility] [id number] Ye Segal 2023-09-26 00:00:00 2023-11-02 18:26:10 Patient Secure Msg Doctor Unassigned, [place] Doctor Unassigned, [place] [facility] 1..114 350.1.13.10 4.2.7.2.686 [id number] [facility] 2023-09-24 09:30:00 2023-09-24 09:45:00 Tong Setter Visit Lab, [facility] Osmany Sutton [facility] ..114 350.1.13.10 4.2.7.2.686 [id number] [facility] 2023-09-24 08:00:00 2023-09-24 08:36:38 Outpatient R OSMANY SUTTON [facility] [id number] [facility] 2023-09-24 08:00:00 2023-09-24 08:36:38 Office Visit Osmany Sutton [facility] .84.114 350.1.13.10 4.2.7.2.686 [id number] [facility] 2023-09-17 07:59:31 2023-09-17 23:59:00 Outpatient R PINKY DONALDSON [facility] [id number] [facility] 2023-09-17 07:59:31 2023-09-17 23:59:00 Hospital Encounter Pinky Donaldson [facility] ..114 350.1.13.10 4.2.7.2.686 [id number] [facility] 2023-06-05 09:30:04 2023-06-05 09:30:04 Outpatient SFA [facility] [id number] Ye Segal 2023-06-05 00:00:00 2023-06-05 00:00:00 Outpatient Visit [facility] [id number] Ye Segal 2023-05-10 11:48:53 2023-05-10 23:59:00 Outpatient R OSMANY SUTTON [facility] [id number] [facility] 2023-05-10 11:48:53 2023-05-10 23:59:00 Hospital Encounter Osmany Sutton [facility] .114 350.1.13.10 4.2.7.2.686 [id number] [facility] 2023-04-09 09:00:00 2023-04-10 08:22:38 Outpatient R OSMANY SUTTON [facility] [id number] [facility] 2023-04-09 09:00:00 2023-04-10 08:22:38 [facility] .114 350.1.13.10 4.2.7.2.686 [id number] [facility] 2023-04-09 09:30:00 2023-04-09 09:45:00 Tong Setter Visit Lab, [facility] Osmany Sutton [facility] AT [facility] .114 350.1.13.10 4.2.7.2.686 [id number] [facility] 2023-04-09 00:00:00 2023-04-09 00:00:00 Orders Only Doctor Unassigned, [place] [facility] .114 350.1.13.10 4.2.7.2.686 [id number] [facility] 2023-01-01 09:25:44 2023-01-01 09:25:44 Outpatient SFA [facility] [id number] Ye Segal 2023-01-01 00:00:00 2023-01-01 00:00:00 Outpatient Visit [facility] [id number] Ye Segal 2022-10-29 10:20:07 2022-10-29 23:59:00 Outpatient R ANDREW PINKY [facility] [id number] [facility] 2022-10-29 10:20:07 2022-10-29 23:59:00 Hospital Encounter Pinky Donaldson [facility] 1.2.840.114 350.1.13.10 4.2.7.2.686 [id number] [facility] 2022-10-25 00:00:00 2022-10-25 00:00:00 Outpatient R PINKY DONALDSON [facility] [id number] [facility] 2022-10-02 15:30:00 2022-10-02 15:45:00 Tong Setter Visit Lab, [facility] Osmany Sutton [facility] 1..840.114 350.1.13.10 4.2.7.2.686 [id number] [facility] 2022-10-02 14:00:00 2022-10-02 14:30:00 Office Visit Osmany Sutton [facility] 1.2840.114 350.1.13.10 4.2.7.2.686 [id number] [facility] 2022-10-02 14:00:00 2022-10-02 14:00:00 Outpatient R OSMANY SUTTON [facility] [id number] [facility] 2022-10-02 00:00:00 2022-10-02 00:00:00 Orders Only Doctor Unassigned, [place] [facility] 1.2840.114 350.1.13.10 4.2.7.2.686 [id number] [facility] 2022-10-01 11:23:39 2022-10-01 11:23:39 Outpatient SFA [facility] [id number] Ye Segal 2022-10-01 00:00:00 2022-10-01 00:00:00 Outpatient Visit [facility] [id number] Ye Segal 2022-07-31 08:50:21 2022-07-31 23:59:00 Outpatient R ANDREW PINKY [facility] [id number] [facility] 2022-07-31 08:50:21 2022-07-31 23:59:00 Hospital Encounter Nancy Donaldsony Jorge [facility] 1.2840.114 350.1.13.10 4.2.7.2.686 [id number] [facility] 2022-07-31 00:00:00 2022-07-31 00:00:00 Telephone NalloydNiurka bundy [facility] 1.2840.114 350.1.13.10 4.2.7.2.686 [id number] [facility] 2022-07-16 10:20:39 2022-07-16 23:59:00 Outpatient R TATIANNA GORDILLO [facility] [id number] [facility] 2022-07-16 10:20:39 2022-07-16 23:59:00 Hospital Encounter Tatianna Gordillo [facility] 1.2840.114 350.1.13.10 4.2.7.2.686 [id number] [facility] 2022-07-12 00:00:00 2022-07-12 00:00:00 Outpatient R MICHAEL [facility] [id number] [facility] 2022-06-21 13:51:58 2022-06-21 13:51:58 Outpatient TATIANNA SANFORD [facility] [id number] [facility] 2022-06-21 00:00:00 2022-06-21 00:00:00 Outpatient R TATIANNA GORDILLO [facility] [id number] [facility] 2022-06-13 10:05:46 2022-06-13 10:05:46 Outpatient SFA [facility] [id number] Ye Segal 2022-06-13 00:00:00 2022-06-13 00:00:00 Outpatient Visit [facility] [id number] Ye Segal 2022-05-25 00:00:00 2022-05-25 00:00:00 Telephone [facility] ..840.114 350.1.13.10 4.2.7.2.686 [id number] [facility] 2022-05-18 09:57:24 2022-05-18 23:59:00 Outpatient R YULIANAMerissa [facility] [id number] [facility] 2022-05-18 09:57:24 2022-05-18 23:59:00 Hospital Encounter [facility] ..840.114 350.1.13.10 4.2.7.2.686 [id number] [facility] 2022-04-24 10:45:00 2022-04-24 11:00:00 Tong Setter Visit Lab, Ang - Db [facility] 1..840.114 350.1.13.10 4.2.7.2.686 [id number] [facility] 2022-04-24 10:00:00 2022-04-24 10:26:29 Outpatient Cal YULIANAMerissaNIURKA [facility] [id number] [facility] 2022-04-24 00:00:00 2022-04-24 00:00:00 Orders Only Doctor Unassigned, [place] [facility] 1.2.840.114 350.1.13.10 4.2.7.2.686 [id number] [facility] 2022-03-15 00:00:00 2022-03-15 00:00:00 Orders Only Doctor Unassigned, [place] [facility] 1.2.840.114 350.1.13.10 4.2.7.2.686 [id number] [facility] 2020-06-10 09:50:00 2020-06-10 09:50:00 Outpatient [facility] [id number] [facility] 2020-06-10 09:50:00 2020-06-10 09:50:00 Outpatient [facility] [id number] [facility] 2020-05-20 09:50:00 2020-05-20 09:50:00 Outpatient WANDY GARCIA [facility] [id number] [facility] Results Test Description Test Time Test Comments Results Resul t Comments Source XR CHEST 2 VW 2023-11-04 3 18:58:33 EXAM: XR CHEST 2 VW COMPARISON: CT 09/17/2023 HISTORY: Other nonspecific abnormal finding of lung field Faxed order [facility] CT LUNG NODULE 2023-09-02 6 14:48:55 HISTORY: [...] new irregular shaped nodularity has developed, measuring [id number] in the left upper lung (9:104). 4 [...] If no change, no further follow up. [facility] Ye Colin AustinLIPID [id number] 00:00:00* Test Item Value Reference Range Interpretation Comme nts CHOLESTEROL (test code = 2210) 263 MG/DL TRIGLYCERIDES (test code = 2232) 247 MG/DL HDL CHOLESTEROL (test code = 2220) 77 MG/DL CALC LDL CHOL (test code = 2237) 146 MG/DL RISK RATIO LDL/HDL (test cod e = 2238) 1.90 RATIO Ye Colin PhilippCOMPREHENSIVE METABOLIC [id number] 00:00:00* Test Item Value Reference Range Interpretation Comme nts GLUCOSE (test code = 2217) 92 MG/DL BUN (test code = 2208) 11 MG/DL CREATININE (test code = 2214) 0.96 MG/DL eGFR (2020 CKD-EPI) (test co de = 98771) 92 ML/MIN/1.73 CALC BUN/CREAT (test code = 2235) 11 RATIO SODIUM (test code = 2231) 139 MEQ/L POTASSIUM (test code = 2228) 4.6 MEQ/L CHLORIDE (test code = 2215) 103 MEQ/L CARBON DIOXIDE (test code = 2206) 21 MEQ/L CALCIUM (test code = 2209) 9.8 MG/DL PROTEIN, TOTAL (test code = 2229) 7.2 G/DL ALBUMIN (test code = 2201) 5.1 G/DL CALC GLOBULIN (test code = 2240) 2.1 G/DL CALC A/G RATIO (test code = 2234) 2.4 RATIO BILIRUBIN, TOTAL (test code = 2207) 0.5 MG/DL ALKALINE PHOSPHATASE (test code = 2204) 100 U/L AST (test code = 2218) 19 U/L ALT (test code = 2219) 23 U/L Ye Colin PhilippURINALYSIS W/REFLEX [id number] 00:00:00* Test Item Value Reference Range Interpretation Comme nts COLOR (test code = 1501) YELLOW APPEARANCE (test code = 1502) CLEAR SPECIFIC GRAVITY (test code = 1503) 1.010 LEUKOCYTE ESTERASE (test cod e = 1504) NEGATIVE NITRITE (test code = 1505) NEGATIVE pH (test code = 1506) 5.5 PROTEIN (test code = 1507) NEGATIVE GLUCOSE (test code = 1508) NEGATIVE KETONES (test code = 1509) NEGATIVE UROBILINOGEN (test code = 1510) 0.2 MG/DL BILIRUBIN (test code = 1511) NEGATIVE OCCULT BLOOD (test code = 1512) NEGATIVE Ye Colin PhilippPSA, [id number] 00:00:00* Test Item Value Reference Range Interpretation Comme nts PSA, TOTAL (test code = 2606) 5.24 NG/ML Ye SegalCBC W/AUTO [id number] 00:00:00* Test Item Value Reference Range Interpretation Comme nts WBC (test code = 1001) 6.6 K/UL RBC (test code = 1002) 4.81 M/UL HEMOGLOBIN (test code = 1003) 16.5 G/DL HEMATOCRIT (test code = 1004) 47.1 % MCV (test code = 1005) 97.9 fL MCH (test code = 1006) 34.3 PG MCHC (test code = 1007) 35.0 G/DL RDW (test code = 1038) 12.8 % NEUTROPHILS (test code = 1008) 59.2 % LYMPHOCYTES (test code = 1010) 26.4 % MONOCYTES (test code = 1011) 9.2 % EOSINOPHILS (test code = 1012) 3.2 % BASOPHILS (test code = 1013) 1.7 % IMMATURE GRANULOCYTES (test code = 1036) 0.3 % NUCLEATED RBCS (test code = 1065) 0.0 /100WBC'S PLATELET COUNT (test code = 1015) 317 K/UL ABSOLUTE NEUTROPHILS (test c ode = 1066) 3.88 K/UL ABSOLUTE LYMPHOCYTES (test c ode = 1067) 1.73 K/UL ABSOLUTE MONOCYTES (test cod e = 1068) 0.60 K/UL ABSOLUTE EOSINOPHILS (test c ode = 1040) 0.21 K/UL ABSOLUTE BASOPHILS (test cod e = 1069) 0.11 K/UL ABS IMMATURE GRANULOCYTES (t est code = 1020) 0.02 K/UL ABS NUCLEATED RBCS (test cod e = 02706) 0.00 K/UL Ye SegalLIPID [id number] 00:00:00* Test Item Value Reference Range Interpretation Comme nts CHOLESTEROL (test code = 2210) 263 MG/DL TRIGLYCERIDES (test code = 2232) 247 MG/DL HDL CHOLESTEROL (test code = 2220) 77 MG/DL CALC LDL CHOL (test code = 2237) 146 MG/DL RISK RATIO LDL/HDL (test cod e = 2238) 1.90 RATIO Ye SegalCOMPREHENSIVE METABOLIC [id number] 00:00:00* Test Item Value Reference Range Interpretation Comme nts GLUCOSE (test code = 2217) 92 MG/DL BUN (test code = 2208) 11 MG/DL CREATININE (test code = 2214) 0.96 MG/DL eGFR (2020 CKD-EPI) (test co de = 65922) 92 ML/MIN/1.73 CALC BUN/CREAT (test code = 2235) 11 RATIO SODIUM (test code = 2231) 139 MEQ/L POTASSIUM (test code = 2228) 4.6 MEQ/L CHLORIDE (test code = 2215) 103 MEQ/L CARBON DIOXIDE (test code = 2206) 21 MEQ/L CALCIUM (test code = 2209) 9.8 MG/DL PROTEIN, TOTAL (test code = 2229) 7.2 G/DL ALBUMIN (test code = 2201) 5.1 G/DL CALC GLOBULIN (test code = 2240) 2.1 G/DL CALC A/G RATIO (test code = 2234) 2.4 RATIO BILIRUBIN, TOTAL (test code = 2207) 0.5 MG/DL ALKALINE PHOSPHATASE (test code = 2204) 100 U/L AST (test code = 2218) 19 U/L ALT (test code = 2219) 23 U/L Ye SegalURINALYSIS W/REFLEX [id number] 00:00:00* Test Item Value Reference Range Interpretation Comme nts COLOR (test code = 1501) YELLOW APPEARANCE (test code = 1502) CLEAR SPECIFIC GRAVITY (test code = 1503) 1.010 LEUKOCYTE ESTERASE (test cod e = 1504) NEGATIVE NITRITE (test code = 1505) NEGATIVE pH (test code = 1506) 5.5 PROTEIN (test code = 1507) NEGATIVE GLUCOSE (test code = 1508) NEGATIVE KETONES (test code = 1509) NEGATIVE UROBILINOGEN (test code = 1510) 0.2 MG/DL BILIRUBIN (test code = 1511) NEGATIVE OCCULT BLOOD (test code = 1512) NEGATIVE Ye SegalPSA, [id number] 00:00:00* Test Item Value Reference Range Interpretation Comme nts PSA, TOTAL (test code = 2606) 5.24 NG/ML Ye SegalCBC W/AUTO [id number] 00:00:00* Test Item Value Reference Range Interpretation Comme nts WBC (test code = 1001) 6.6 K/UL RBC (test code = 1002) 4.81 M/UL HEMOGLOBIN (test code = 1003) 16.5 G/DL HEMATOCRIT (test code = 1004) 47.1 % MCV (test code = 1005) 97.9 fL MCH (test code = 1006) 34.3 PG MCHC (test code = 1007) 35.0 G/DL RDW (test code = 1038) 12.8 % NEUTROPHILS (test code = 1008) 59.2 % LYMPHOCYTES (test code = 1010) 26.4 % MONOCYTES (test code = 1011) 9.2 % EOSINOPHILS (test code = 1012) 3.2 % BASOPHILS (test code = 1013) 1.7 % IMMATURE GRANULOCYTES (test code = 1036) 0.3 % NUCLEATED RBCS (test code = 1065) 0.0 /100WBC'S PLATELET COUNT (test code = 1015) 317 K/UL ABSOLUTE NEUTROPHILS (test c ode = 1066) 3.88 K/UL ABSOLUTE LYMPHOCYTES (test c ode = 1067) 1.73 K/UL ABSOLUTE MONOCYTES (test cod e = 1068) 0.60 K/UL ABSOLUTE EOSINOPHILS (test c ode = 1040) 0.21 K/UL ABSOLUTE BASOPHILS (test cod e = 1069) 0.11 K/UL ABS IMMATURE GRANULOCYTES (t est code = 1020) 0.02 K/UL ABS NUCLEATED RBCS (test cod e = 54595) 0.00 K/UL Ye Colin AustinLIPID [id number] 00:00:00* Test Item Value Reference Range Interpretation Comme nts CHOLESTEROL (test code = 2210) 263 MG/DL TRIGLYCERIDES (test code = 2232) 247 MG/DL HDL CHOLESTEROL (test code = 2220) 77 MG/DL CALC LDL CHOL (test code = 2237) 146 MG/DL RISK RATIO LDL/HDL (test cod e = 2238) 1.90 RATIO eY SegalCOMPREHENSIVE METABOLIC [id number] 00:00:00* Test Item Value Reference Range Interpretation Comme nts GLUCOSE (test code = 2217) 92 MG/DL BUN (test code = 2208) 11 MG/DL CREATININE (test code = 2214) 0.96 MG/DL eGFR (2020 CKD-EPI) (test co de = 64294) 92 ML/MIN/1.73 CALC BUN/CREAT (test code = 2235) 11 RATIO SODIUM (test code = 2231) 139 MEQ/L POTASSIUM (test code = 2228) 4.6 MEQ/L CHLORIDE (test code = 2215) 103 MEQ/L CARBON DIOXIDE (test code = 2206) 21 MEQ/L CALCIUM (test code = 2209) 9.8 MG/DL PROTEIN, TOTAL (test code = 2229) 7.2 G/DL ALBUMIN (test code = 2201) 5.1 G/DL CALC GLOBULIN (test code = 2240) 2.1 G/DL CALC A/G RATIO (test code = 2234) 2.4 RATIO BILIRUBIN, TOTAL (test code = 2207) 0.5 MG/DL ALKALINE PHOSPHATASE (test code = 2204) 100 U/L AST (test code = 2218) 19 U/L ALT (test code = 2219) 23 U/L Ye SegalURINALYSIS W/REFLEX [id number] 00:00:00* Test Item Value Reference Range Interpretation Comme nts COLOR (test code = 1501) YELLOW APPEARANCE (test code = 1502) CLEAR SPECIFIC GRAVITY (test code = 1503) 1.010 LEUKOCYTE ESTERASE (test cod e = 1504) NEGATIVE NITRITE (test code = 1505) NEGATIVE pH (test code = 1506) 5.5 PROTEIN (test code = 1507) NEGATIVE GLUCOSE (test code = 1508) NEGATIVE KETONES (test code = 1509) NEGATIVE UROBILINOGEN (test code = 1510) 0.2 MG/DL BILIRUBIN (test code = 1511) NEGATIVE OCCULT BLOOD (test code = 1512) NEGATIVE Ye SegalPSA, [id number] 00:00:00* Test Item Value Reference Range Interpretation Comme nts PSA, TOTAL (test code = 2606) 5.24 NG/ML Ye SegalCBC W/AUTO [id number] 00:00:00* Test Item Value Reference Range Interpretation Comme nts WBC (test code = 1001) 6.6 K/UL RBC (test code = 1002) 4.81 M/UL HEMOGLOBIN (test code = 1003) 16.5 G/DL HEMATOCRIT (test code = 1004) 47.1 % MCV (test code = 1005) 97.9 fL MCH (test code = 1006) 34.3 PG MCHC (test code = 1007) 35.0 G/DL RDW (test code = 1038) 12.8 % NEUTROPHILS (test code = 1008) 59.2 % LYMPHOCYTES (test code = 1010) 26.4 % MONOCYTES (test code = 1011) 9.2 % EOSINOPHILS (test code = 1012) 3.2 % BASOPHILS (test code = 1013) 1.7 % IMMATURE GRANULOCYTES (test code = 1036) 0.3 % NUCLEATED RBCS (test code = 1065) 0.0 /100WBC'S PLATELET COUNT (test code = 1015) 317 K/UL ABSOLUTE NEUTROPHILS (test c ode = 1066) 3.88 K/UL ABSOLUTE LYMPHOCYTES (test c ode = 1067) 1.73 K/UL ABSOLUTE MONOCYTES (test cod e = 1068) 0.60 K/UL ABSOLUTE EOSINOPHILS (test c ode = 1040) 0.21 K/UL ABSOLUTE BASOPHILS (test cod e = 1069) 0.11 K/UL ABS IMMATURE GRANULOCYTES (t est code = 1020) 0.02 K/UL ABS NUCLEATED RBCS (test cod e = 57614) 0.00 K/UL Ye Colin ClairtonLIPID [id number] 00:00:00* Test Item Value Reference Range Interpretation Comme nts CHOLESTEROL (test code = 2210) 263 MG/DL TRIGLYCERIDES (test code = 2232) 247 MG/DL HDL CHOLESTEROL (test code = 2220) 77 MG/DL CALC LDL CHOL (test code = 2237) 146 MG/DL RISK RATIO LDL/HDL (test cod e = 2238) 1.90 RATIO Ye SegalCOMPREHENSIVE METABOLIC [id number] 00:00:00* Test Item Value Reference Range Interpretation Comme nts GLUCOSE (test code = 2217) 92 MG/DL BUN (test code = 2208) 11 MG/DL CREATININE (test code = 2214) 0.96 MG/DL eGFR (2020 CKD-EPI) (test co de = 17214) 92 ML/MIN/1.73 CALC BUN/CREAT (test code = 2235) 11 RATIO SODIUM (test code = 2231) 139 MEQ/L POTASSIUM (test code = 2228) 4.6 MEQ/L CHLORIDE (test code = 2215) 103 MEQ/L CARBON DIOXIDE (test code = 2206) 21 MEQ/L CALCIUM (test code = 2209) 9.8 MG/DL PROTEIN, TOTAL (test code = 2229) 7.2 G/DL ALBUMIN (test code = 2201) 5.1 G/DL CALC GLOBULIN (test code = 2240) 2.1 G/DL CALC A/G RATIO (test code = 2234) 2.4 RATIO BILIRUBIN, TOTAL (test code = 2207) 0.5 MG/DL ALKALINE PHOSPHATASE (test code = 2204) 100 U/L AST (test code = 2218) 19 U/L ALT (test code = 2219) 23 U/L Ye Colin PhilippURINALYSIS W/REFLEX [id number] 00:00:00* Test Item Value Reference Range Interpretation Comme nts COLOR (test code = 1501) YELLOW APPEARANCE (test code = 1502) CLEAR SPECIFIC GRAVITY (test code = 1503) 1.010 LEUKOCYTE ESTERASE (test cod e = 1504) NEGATIVE NITRITE (test code = 1505) NEGATIVE pH (test code = 1506) 5.5 PROTEIN (test code = 1507) NEGATIVE GLUCOSE (test code = 1508) NEGATIVE KETONES (test code = 1509) NEGATIVE UROBILINOGEN (test code = 1510) 0.2 MG/DL BILIRUBIN (test code = 1511) NEGATIVE OCCULT BLOOD (test code = 1512) NEGATIVE Ye SegalPSA, [id number] 00:00:00* Test Item Value Reference Range Interpretation Comme nts PSA, TOTAL (test code = 2606) 5.24 NG/ML Ye Colin PhilippCBC W/AUTO [id number] 00:00:00* Test Item Value Reference Range Interpretation Comme nts WBC (test code = 1001) 6.6 K/UL RBC (test code = 1002) 4.81 M/UL HEMOGLOBIN (test code = 1003) 16.5 G/DL HEMATOCRIT (test code = 1004) 47.1 % MCV (test code = 1005) 97.9 fL MCH (test code = 1006) 34.3 PG MCHC (test code = 1007) 35.0 G/DL RDW (test code = 1038) 12.8 % NEUTROPHILS (test code = 1008) 59.2 % LYMPHOCYTES (test code = 1010) 26.4 % MONOCYTES (test code = 1011) 9.2 % EOSINOPHILS (test code = 1012) 3.2 % BASOPHILS (test code = 1013) 1.7 % IMMATURE GRANULOCYTES (test code = 1036) 0.3 % NUCLEATED RBCS (test code = 1065) 0.0 /100WBC'S PLATELET COUNT (test code = 1015) 317 K/UL ABSOLUTE NEUTROPHILS (test c ode = 1066) 3.88 K/UL ABSOLUTE LYMPHOCYTES (test c ode = 1067) 1.73 K/UL ABSOLUTE MONOCYTES (test cod e = 1068) 0.60 K/UL ABSOLUTE EOSINOPHILS (test c ode = 1040) 0.21 K/UL ABSOLUTE BASOPHILS (test cod e = 1069) 0.11 K/UL ABS IMMATURE GRANULOCYTES (t est code = 1020) 0.02 K/UL ABS NUCLEATED RBCS (test cod e = 75282) 0.00 K/UL Ye Colin PhilippLIPID [id number] 00:00:00* Test Item Value Reference Range Interpretation Comme nts CHOLESTEROL (test code = 2210) 263 MG/DL TRIGLYCERIDES (test code = 2232) 247 MG/DL HDL CHOLESTEROL (test code = 2220) 77 MG/DL CALC LDL CHOL (test code = 2237) 146 MG/DL RISK RATIO LDL/HDL (test cod e = 2238) 1.90 RATIO Ye SegalCOMPREHENSIVE METABOLIC [id number] 00:00:00* Test Item Value Reference Range Interpretation Comme nts GLUCOSE (test code = 2217) 92 MG/DL BUN (test code = 2208) 11 MG/DL CREATININE (test code = 2214) 0.96 MG/DL eGFR (2020 CKD-EPI) (test co de = 76868) 92 ML/MIN/1.73 CALC BUN/CREAT (test code = 2235) 11 RATIO SODIUM (test code = 2231) 139 MEQ/L POTASSIUM (test code = 2228) 4.6 MEQ/L CHLORIDE (test code = 2215) 103 MEQ/L CARBON DIOXIDE (test code = 2206) 21 MEQ/L CALCIUM (test code = 2209) 9.8 MG/DL PROTEIN, TOTAL (test code = 2229) 7.2 G/DL ALBUMIN (test code = 2201) 5.1 G/DL CALC GLOBULIN (test code = 2240) 2.1 G/DL CALC A/G RATIO (test code = 2234) 2.4 RATIO BILIRUBIN, TOTAL (test code = 2207) 0.5 MG/DL ALKALINE PHOSPHATASE (test code = 2204) 100 U/L AST (test code = 2218) 19 U/L ALT (test code = 2219) 23 U/L Ye Colin PhilippURINALYSIS W/REFLEX [id number] 00:00:00* Test Item Value Reference Range Interpretation Comme nts COLOR (test code = 1501) YELLOW APPEARANCE (test code = 1502) CLEAR SPECIFIC GRAVITY (test code = 1503) 1.010 LEUKOCYTE ESTERASE (test cod e = 1504) NEGATIVE NITRITE (test code = 1505) NEGATIVE pH (test code = 1506) 5.5 PROTEIN (test code = 1507) NEGATIVE GLUCOSE (test code = 1508) NEGATIVE KETONES (test code = 1509) NEGATIVE UROBILINOGEN (test code = 1510) 0.2 MG/DL BILIRUBIN (test code = 1511) NEGATIVE OCCULT BLOOD (test code = 1512) NEGATIVE Ye SegalPSA, [id number] 00:00:00* Test Item Value Reference Range Interpretation Comme nts PSA, TOTAL (test code = 2606) 5.24 NG/ML Ye SegalCBC W/AUTO [id number] 00:00:00* Test Item Value Reference Range Interpretation Comme nts WBC (test code = 1001) 6.6 K/UL RBC (test code = 1002) 4.81 M/UL HEMOGLOBIN (test code = 1003) 16.5 G/DL HEMATOCRIT (test code = 1004) 47.1 % MCV (test code = 1005) 97.9 fL MCH (test code = 1006) 34.3 PG MCHC (test code = 1007) 35.0 G/DL RDW (test code = 1038) 12.8 % NEUTROPHILS (test code = 1008) 59.2 % LYMPHOCYTES (test code = 1010) 26.4 % MONOCYTES (test code = 1011) 9.2 % EOSINOPHILS (test code = 1012) 3.2 % BASOPHILS (test code = 1013) 1.7 % IMMATURE GRANULOCYTES (test code = 1036) 0.3 % NUCLEATED RBCS (test code = 1065) 0.0 /100WBC'S PLATELET COUNT (test code = 1015) 317 K/UL ABSOLUTE NEUTROPHILS (test c ode = 1066) 3.88 K/UL ABSOLUTE LYMPHOCYTES (test c ode = 1067) 1.73 K/UL ABSOLUTE MONOCYTES (test cod e = 1068) 0.60 K/UL ABSOLUTE EOSINOPHILS (test c ode = 1040) 0.21 K/UL ABSOLUTE BASOPHILS (test cod e = 1069) 0.11 K/UL ABS IMMATURE GRANULOCYTES (t est code = 1020) 0.02 K/UL ABS NUCLEATED RBCS (test cod e = 14316) 0.00 K/UL Ye SegalLIPID [id number] 00:00:00* Test Item Value Reference Range Interpretation Comme nts CHOLESTEROL (test code = 2210) 263 MG/DL TRIGLYCERIDES (test code = 2232) 247 MG/DL HDL CHOLESTEROL (test code = 2220) 77 MG/DL CALC LDL CHOL (test code = 2237) 146 MG/DL RISK RATIO LDL/HDL (test cod e = 2238) 1.90 RATIO Ye SegalCOMPREHENSIVE METABOLIC [id number] 00:00:00* Test Item Value Reference Range Interpretation Comme nts GLUCOSE (test code = 2217) 92 MG/DL BUN (test code = 2208) 11 MG/DL CREATININE (test code = 2214) 0.96 MG/DL eGFR (2020 CKD-EPI) (test co de = 18937) 92 ML/MIN/1.73 CALC BUN/CREAT (test code = 2235) 11 RATIO SODIUM (test code = 2231) 139 MEQ/L POTASSIUM (test code = 2228) 4.6 MEQ/L CHLORIDE (test code = 2215) 103 MEQ/L CARBON DIOXIDE (test code = 2206) 21 MEQ/L CALCIUM (test code = 2209) 9.8 MG/DL PROTEIN, TOTAL (test code = 2229) 7.2 G/DL ALBUMIN (test code = 2201) 5.1 G/DL CALC GLOBULIN (test code = 2240) 2.1 G/DL CALC A/G RATIO (test code = 2234) 2.4 RATIO BILIRUBIN, TOTAL (test code = 2207) 0.5 MG/DL ALKALINE PHOSPHATASE (test code = 2204) 100 U/L AST (test code = 2218) 19 U/L ALT (test code = 2219) 23 U/L Ye SegalURINALYSIS W/REFLEX [id number] 00:00:00* Test Item Value Reference Range Interpretation Comme nts COLOR (test code = 1501) YELLOW APPEARANCE (test code = 1502) CLEAR SPECIFIC GRAVITY (test code = 1503) 1.010 LEUKOCYTE ESTERASE (test cod e = 1504) NEGATIVE NITRITE (test code = 1505) NEGATIVE pH (test code = 1506) 5.5 PROTEIN (test code = 1507) NEGATIVE GLUCOSE (test code = 1508) NEGATIVE KETONES (test code = 1509) NEGATIVE UROBILINOGEN (test code = 1510) 0.2 MG/DL BILIRUBIN (test code = 1511) NEGATIVE OCCULT BLOOD (test code = 1512) NEGATIVE Ye SegalPSA, [id number] 00:00:00* Test Item Value Reference Range Interpretation Comme nts PSA, TOTAL (test code = 2606) 5.24 NG/ML Ye Colin Philipp Notes Date/Time Note Provider Source 2024-04-07 11:15:00 Images from the original note were not included. Venipuncture collection performed by clean technique on the left anticubitus. Total of 1 attempts were made. Slight pressure and a bandage/dressing were applied to the site(s). The patient experienced no complications. The following specimens were processed according to instructions and sent to [facility] laboratories per lab order on 04/07/24: LT BLUE SST 1 RED LAV PPT DK GREEN (LiHep) DK GREEN (SodH) GARCIA DK BLUE (K2) DK BLUE (S) ACD Blood Culture NIPT/NTD [facility]24-[facility] 09:30:00 Callled for patient at waiting area, no answer. [id number] 09:30:00 Images from the original note were [...] DK BLUE (S) ACD Blood Culture NIPT/NTD [facility]2024-07-23 08:00:00 Called. No answer. Left a message on machine for patient to give us a call back. Madeline Mcfadden RN [facility] Madeline Blank [id number] 08:00:00 Called, no answer. Left a message on machine for patient to give us a call back. Will send [employer] message. Madeline Mcfadden RN [facility]2024-04-03 00:00:00 Ye [facility]2024-02-06 09:30:00 Images from the original note were [...] DK BLUE (S) ACD Blood Culture NIPT/NTD [facility]2023-10-31 00:00:00 Ye Y[facility]2023-08-01 15:30:00 Images from the original note were not [...] DK BLUE (S) ACD Blood Culture NIPT/NTD [place] [id number] 14:00:00Addended by: OSMANY SUTTON MD on: 10/07/2022 11:09 AM Modules accepted: Level of Service [place] [id number] 00:00:00 [facility]2023-04-12 00:00:00 [facility]
[2024-05-05] MEDS ORDERED: ALBUTEROL 2.5 MG/3 ML NEB SOL ONE ×2 (13:22→18:01)
[2024-05-05] MEDS ORDERED: ASPIRIN 81 MG CHEWABLE TABLET ONE (13:22)
[2024-05-05] MEDS ORDERED: IPRATROPIUM BROM 0.5MG/2.5ML ONE ×2 (13:23→20:47)
[2024-05-05] MEDS ORDERED: METHYLPREDNISOLONE 125 MG INJ ONE (13:23)
[2024-05-05 13:28] LABS: Absolute Lymphocytes (CBC) 0.9 K/uL (0.7-4.9); Absolute Monocytes 0.4 K/uL (0.1-1.3); Absolute Neutrophil 6.2 K/uL (1.8-8.0); Basophils % 0.5 % (0-1.3); Eosinophils % 0.5 % (0-4.4); Hematocrit 48.2 % (39.6-49.0); Hemoglobin 16.8 g/dL (13.6-17.9); MCH 35.1 pg (27.0-35.0); MCHC 34.8 g/dL (32.0-36.0); MCV 100.7 fL (80-100); MPV 7.6 fL (7.6-11.3); Monocytes % 5.8 % (3.3-12.3); Neutrophils % 81.2 % (41.7-73.7); Platelets 279 thou/uL (152-406); RBC Red Blood Cell Count 4.79 M/uL (4.33-5.43); Red Cell Distribution Width 14.1 % (12.1-15.2)
[2024-05-05 13:35] LABS: PT Prothrombin Time 10.3 SECONDS (10.0-13.0); Protime INR 0.9
[2024-05-05 13:48] LABS: Albumin 4.1 g/dL (3.4-5.0); Anion Gap 9.6 mEq/L (5.0-15.0); Bilirubin Direct 0.2 mg/dL (0-0.2); Bilirubin Indirect, Calculated 0.7 mg/dL (0.2-0.8); Bilirubin Total 0.9 mg/dL (0.2-1.0); Magnesium 2.3 mg/dL (1.6-2.4); Potassium 4.6 mEq/L (3.5-5.1); Protein, Total 8.1 g/dL (6.4-8.2); Troponin High Sensitivity 5.9 pg/mL (<58.9)
--- NOTE | 2024-05-05 13:52 | RAD REPORT ---
Procedure: Chest Single View HISTORY: Shortness of breath COMPARISON: 2023 FINDINGS: Left mid lung opacity on the prior exam has mostly resolved. Right lung appears clear of acute infiltrate. No significant pleural effusion noted. The heart is normal size. IMPRESSION: Left midlung opacity has mostly resolved.
--- NOTE | 2024-05-05 14:08 | ER ---
Nurse's Notes [facility] Name: Garth Loaiza Age: 59 yrs Sex: Male : 1965 Arrival Date: 05/05/2024 Time: 12:31 Bed 26 Private MD: Diagnosis: COPD/ Chronic obstructive pulmonary disease with (acute) exacerbation;Essential (primary) hypertension Presentation: 05/05 13:05 Chief complaint: Patient states: SOB and chest pain X 3 days. Constant pressure. Pt ld1 reports taking steroids and breathing treatments daily. Pt reports being admitted last year for Pneumonia and it felt like this. Coronavirus screen: At this time, the client does not indicate any symptoms associated with coronavirus-19. Ebola Screen: No symptoms or risks identified at this time. Initial Sepsis Screen: Does the patient meet any 2 criteria? No. Patient's initial sepsis screen is negative. Does the patient have a suspected source of infection? No. Patient's initial sepsis screen is negative. Risk Assessment: Do you want to hurt yourself or someone else? Patient reports no desire to harm self or others. Onset of symptoms was May 05, 2024. 13:05 Method Of Arrival: Ambulatory ld1 13:05 Acuity: TERRIE 2 ld1 Triage Assessment: 13:05 General: Appears in no apparent distress. comfortable, Behavior is calm, cooperative, ld1 appropriate for age. Pain: Complains of pain in chest Pain does not radiate. Pain currently is 8 out of 10 on a pain scale. Quality of pain is described as pressure, Pain began 2-3 days ago. Is continuous. EENT: No signs and/or symptoms were reported regarding the EENT system. Neuro: Level of Consciousness is awake, alert, obeys commands, Oriented to person, place, time, situation. Cardiovascular: Capillary refill < 3 seconds Patient's skin is warm and dry. Rhythm is sinus rhythm. Respiratory: Airway is patent Respiratory effort is even, labored. GI: Abdomen is round non-distended. : No signs and/or symptoms were reported regarding the genitourinary system. Derm: No signs and/or symptoms reported regarding the dermatologic system. Musculoskeletal: No signs and/or symptoms reported regarding the musculoskeletal system. Historical: - Allergies: 13:04 tramadol; ld1 - PMHx: 13:04 Bronchitis; Chronic obstructive lung disease; ld1 - Immunization history:: Adult Immunizations up to date. - Infectious Disease History:: Denies. - Social history:: Smoking status: Patient/guardian denies using tobacco, Stopped _ months ago 3. Screenin:11 [facility] ED Fall Risk Assessment (Adult) History of falling in the last 3 months, kj2 including since admission No falls in past 3 months (0 pts) Confusion or Disorientation No (0 pts) Intoxicated or Sedated No (0 pts) Impaired Gait No (0 pts) Mobility Assist Device Used No (0 pt) Altered Elimination No (0 pt) Score/Fall Risk Level 0 - 2 = Low Risk Maintained a safe environment, Hourly rounding (assess needs \T\ fall precautionary measures) done. Abuse screen: Denies threats or abuse. Denies injuries from another. Nutritional screening: No deficits noted. Tuberculosis screening: No symptoms or risk factors identified. Assessment: 15:00 General: Appears uncomfortable, Behavior is calm, cooperative. Pain: Complains of pain kj2 in chest Pain currently is 4 out of 10 on a pain scale. Neuro: Level of Consciousness is awake, Oriented to person, place, time, situation. Cardiovascular: Patient's skin is warm and dry. Respiratory: Reports shortness of breath at rest Airway is patent. GI: No signs and/or symptoms were reported involving the gastrointestinal system. : No signs and/or symptoms were reported regarding the genitourinary system. Vital Signs: 13:05 BP 143 / 85; Pulse 95; Resp 22; Temp 98.1(TE); Pulse Ox 94% on R/A; Weight 81.65 kg; ld1 Height 5 ft. 10 in. ; Pain 6/10; 15:00 BP 130 / 81; Pulse 72; Resp 20; Pulse Ox 94% on R/A; kj2 13:05 Body Mass Index 25.83 (81.65 kg, 177.8 cm) ld1 13:05 Pain Scale: Adult ld1 ED Course: 12:34 Patient arrived in ED. mr 12:39 Jd Carmona DO is Attending Physician. ms3 13:05 Arm band placed on right wrist. EKG completed in triage. Results shown to MD. ld1 13:07 Triage completed. ld1 13:21 Initial lab(s) drawn, by me, sent to lab. EKG done, by ED staff. Inserted saline lock: tm3 20 gauge in right antecubital area, using aseptic technique. 13:47 XRAY Chest (1 view) In Process Unspecified. EDMS 14:07 Osmany Mondragon is Hospitalizing Provider. ms3 15:01 Conchis Coleman, AMANDA is Primary Nurse. kj2 15:11 Patient has correct armband on for positive identification. Bed in low position. Call kj2 light in reach. Provided Education on: call light. Client placed on continuous cardiac and pulse oximetry monitoring. NIBP monitoring applied. case monitor on. 17:58 No provider procedures requiring assistance completed. kj2 21:12 Patient admitted, IV remains in place. Patient maintains SpO2 saturation greater than kj2 95% on room air. Administered Medications: 13:34 Drug: Aspirin PO Chewable Tablet 324 mg PO once; 81 mg tablets x 4 Route: PO; ss 13:34 Drug: MethylPrednisoLONE IVP 125 mg IVP once Route: IVP; Site: right antecubital; ss 15:02 Follow up: Response: No adverse reaction kj2 13:34 Drug: DuoNeb Nebulize (2.5 mg - 0.5 mg) 3 ml Nebulizer once Route: Nebulizer; ss 15:02 Follow up: Response: No adverse reaction kj2 15:08 Drug: AZITHromycin IVPB 500 mg IVPB once over 1 hrs; (mix in 250 mL NS) Route: IVPB; kj2 Infused Over: 1 hrs; Site: right forearm; 21:12 Follow up: Response: No adverse reaction; IV Status: Completed infusion; IV Intake: kj2 100ml 18:15 Drug: Albuterol Inhalation 2.5 mg Inhalation every 20 minutes x3 Route: Inhalation; kj2 21:13 Follow up: Response: No adverse reaction kj2 Medication: 15:11 VIS not applicable for this client. kj2 Intake: 21:12 IV: 100ml; Total: 100ml. kj2 Outcome: 14:07 Decision to Hospitalize by Provider. ms3 21:12 Admitted to Med/surg accompanied by tech, via wheelchair, room 210, kj2 21:12 Condition: stable 21:12 Instructed on the need for admit, 21:13 Patient left the ED. kj2 Signatures: Dispatcher [employer] EDMS Pantera Baxter tm3 Izabella Alcaraz, Reg Reg mr Layla Banda, RN RN ss Jd Carmona, DO ms3 Laurel Carmona RN RN ld1 Conchis Coleman, AMANDA RN kj2 Corrections: (The following items were deleted from the chart) 13:08 13:05 BP 143 / 85; Pulse 95bpm; Resp 18bpm; Pulse Ox 94% RA; Temp 98.1F Temporal; 81.65 ld1 kg; Height 5 ft. 10 in.; BMI: 25.8; Pain 6/10, Adult; ld1 14:11 13:34 Albuterol Inhalation 2.5 mg Inhalation [facility]
--- NOTE | 2024-05-05 14:08 | EDPHYS ---
Physician Documentation [facility] Name: Garth Loaiza Age: 59 yrs Sex: Male : 1965 Arrival Date: 05/05/2024 Time: 12:31 Bed 26 Private MD: ED Physician Jd Carmona HPI: 05/05 13:58 This 59 yrs old Male presents to ER via Ambulatory with complaints of Chest Pain, ms3 Shortness Of Breath. 14:04 59-year-old male with past medical history of bronchitis, COPD presents to the [facility] emergency department for shortness of breath that has been ongoing for 3 days. Patient states previously when experiencing the symptoms he had pneumonia. However this time patient denies cough. Patient endorses nausea. He denies diaphoresis or vomiting. Patient states the pain is rated a 6/10 and described as pressure in his chest. He denies radiation of his discomfort. Historical: - Allergies: 13:04 tramadol; ld1 - PMHx: 13:04 Bronchitis; Chronic obstructive lung disease; ld1 - Immunization history:: Adult Immunizations up to date. - Infectious Disease History:: Denies. - Social history:: Smoking status: Patient/guardian denies using tobacco, Stopped _ months ago 3. ROS: 14:04 Constitutional: Negative for fever, and chills. ms3 14:04 Cardiovascular: Positive for chest pain, 14:04 Respiratory: Positive for shortness of breath, Exam: 14:04 Constitutional: This is a well developed, well nourished patient who is awake, alert, ms3 and in no acute distress. Head/Face: Normocephalic, atraumatic. Cardiovascular: Regular rate and rhythm with a normal S1 and S2. No gallops, murmurs, or rubs. Normal PMI, no JVD. No pulse deficits. Abdomen/GI: Soft, non-tender, with normal bowel sounds. No distension or tympany. No guarding or rebound. No evidence of tenderness throughout. Skin: Warm, dry with normal turgor. Normal color with no rashes, no lesions, and no evidence of cellulitis. 14:04 Respiratory: moderate respiratory distress is noted, Respirations: Breath sounds: wheezing: expiratory is scattered, 16:24 ECG was reviewed by the Attending Physician. wv3 Vital Signs: 13:05 BP 143 / 85; Pulse 95; Resp 22; Temp 98.1(TE); Pulse Ox 94% on R/A; Weight 81.65 kg; ld1 Height 5 ft. 10 in. ; Pain 6/10; 15:00 BP 130 / 81; Pulse 72; Resp 20; Pulse Ox 94% on R/A; kj2 13:05 Body Mass Index 25.83 (81.65 kg, 177.8 cm) ld1 13:05 Pain Scale: Adult ld1 MDM: 12:50 Medical Screening Exam initiated ms3 14:04 Differential diagnosis: abnormal EKG, acute myocardial infarction, COPD exacerbation. ms3 14:39 The patient was given aspirin in the Emergency Department. Data reviewed: vital signs, ms3 nurses notes, lab test result(s), EKG, radiologic studies, and as a result, I will admit patient. Consideration of Admission/Observation Patient was admitted/placed on observation. Management of patient was discussed with the following: Hospitalist: Dr Mondragon. I considered the following discharge prescriptions or medication management in the emergency department Medications were administered in the Emergency Department. See MAR. Independent interpretation of the following test(s) in the Emergency Department EKG: See my EKG interpretation above. Counseling: I had a detailed discussion with the patient and/or guardian regarding the historical points, exam findings, and any diagnostic results supporting the discharge/admit diagnosis, lab results, radiology results, the need for further work-up and treatment in the hospital. ED course: Discussed necessity for admission with patient and he understands/ agrees with plan.. 05/05 12:39 Order name: Basic Metabolic Panel; Complete Time: 13:51 ms3 05/05 12:39 Order name: CBC with Diff; Complete Time: 13:51 ms3 05/05 12:39 Order name: LFT's; Complete Time: 13:51 ms3 05/05 12:39 Order name: Magnesium; Complete Time: 13:51 ms3 05/05 12:39 Order name: NT PRO-BNP; Complete Time: 13:51 ms3 05/05 12:39 Order name: PT-INR; Complete Time: 13:51 ms3 05/05 12:39 Order name: Troponin HS; Complete Time: 13:51 ms3 05/05 14:06 Order name: Blood Culture Adult (2) ms3 05/05 14:06 Order name: CMP ms3 05/05 14:06 Order name: Lactate w/ 2H reflex if indic. ms3 05/05 14:06 Order name: Ptt, Activated ms3 05/05 15:33 Order name: T4 Free EDMS 05/05 15:33 Order name: Thyroid Stimulating Hormone EDMS / 15:33 Order name: Urinalysis w/ reflexes EDMS 05/05 15:33 Order name: Basic Metabolic Panel EDMS 05/05 15:33 Order name: Basic Metabolic Panel EDMS 05/05 15:33 Order name: Basic Metabolic Panel EDMS 05/05 15:33 Order name: Basic Metabolic Panel EDMS 05/05 15:33 Order name: CBC with Automated Diff EDMS / 15:33 Order name: CBC with Automated Diff EDMS / 15:33 Order name: CBC with Automated Diff EDMS / 15:33 Order name: CBC with Automated Diff EDMS / 15:33 Order name: Lipid Profile EDMS / 15:33 Order name: Lipid Profile EDMS / 15:33 Order name: Magnesium EDMS / 15:33 Order name: Magnesium EDMS / 15:33 Order name: Magnesium EDMS / 15:33 Order name: Magnesium EDMS 03/ 15:33 Order name: Phosphorus EDMS 03/ 15:33 Order name: Phosphorus EDMS / 15:33 Order name: Phosphorus EDMS 03/04 15:33 Order name: Phosphorus EDMS / 15:33 Order name: Troponin High Sensitivity EDMS / 15:33 Order name: Troponin High Sensitivity EDMS / 15:33 Order name: Troponin High Sensitivity EDMS / 18:25 Order name: Comprehensive Metabolic Panel EDMS / 20:12 Order name: COVID-19 Ag + Flu A+B Ag EDMS / 12:39 Order name: XRAY Chest (1 view); Complete Time: 13:53 ms3 05/05 14:06 Order name: EKG; Complete Time: 14:06 ms3 05/05 15:33 Order name: CONS Physician Consult EDMS 05/05 12:39 Order name: Cardiac monitoring ms3 / 12:39 Order name: EKG - Nurse/Tech; Complete Time: 13:08 ms3 05/05 12:39 Order name: IV Saline Lock; Complete Time: 14:11 ms3 05/05 12:39 Order name: Labs collected and sent; Complete Time: 14:11 ms3 05/05 12:39 Order name: O2 Per Protocol; Complete Time: 14:11 ms3 05/05 12:39 Order name: O2 Sat Monitoring; Complete Time: 14:11 ms3 05/05 14:06 Order name: Accucheck ms3 05/05 14:06 Order name: IV Saline Lock - Large Bore; Complete Time: 15:09 ms3 05/05 14:06 Order name: Vital Signs; Complete Time: 15:09 ms3 EC:24 Rate is 94 beats/min. Rhythm is regular. QRS [place] is Normal. QRS interval is normal. ms3 Clinical impression: Normal ECG. Interpreted by me. Reviewed by me. Administered Medications: 13:34 Drug: Aspirin PO Chewable Tablet 324 mg PO once; 81 mg tablets x 4 Route: PO; ss 13:34 Drug: MethylPrednisoLONE IVP 125 mg IVP once Route: IVP; Site: right antecubital; ss 15:02 Follow up: Response: No adverse reaction kj2 13:34 Drug: DuoNeb Nebulize (2.5 mg - 0.5 mg) 3 ml Nebulizer once Route: Nebulizer; ss 15:02 Follow up: Response: No adverse reaction kj2 15:08 Drug: AZITHromycin IVPB 500 mg IVPB once over 1 hrs; (mix in 250 mL NS) Route: IVPB; kj2 Infused Over: 1 hrs; Site: right forearm; 21:12 Follow up: Response: No adverse reaction; IV Status: Completed infusion; IV Intake: kj2 100ml 18:15 Drug: Albuterol Inhalation 2.5 mg Inhalation every 20 minutes x3 Route: Inhalation; kj2 21:13 Follow up: Response: No adverse reaction kj2 Disposition: 14:56 Critical Care:. ms3 Disposition Summary: 05/05/24 14:07 Hospitalization Ordered Notes: Hospitalization Status: Inpatient Admission ms3 Provider: Osmany Mondragon ms3 Condition: Stable ms3 Problem: new ms3 Symptoms: are unchanged ms3 Bed/Room Type: Standard ms3 Location: Telemetry/MedSurg (observation)(05/05/24 20:08) km Room Assignment: [facility](05/05/24 20:08) kmf Diagnosis - COPD/ Chronic obstructive pulmonary disease with (acute) exacerbation ms3 - Essential (primary) hypertension ms3 Forms: - Medication Reconciliation Form ms3 - SBAR form ms3 - Leadership Thank You Letter ms3 Critical care time excluding procedures: 14:56 Critical care time: Bedside Care: 30 minutes, Consultation: 5 minutes, Family ms3 Intervention: 5 minutes. Total time: 40 minutes Signatures: Dispatcher [employer] EDMS Layla Banda, RN RN ss Jd Carmona, DO ms3 Laurel Carmona RN RN ld1 Danni Peguero [facility] Conchis Coleman, RN RN kj2 Corrections: (The following items were deleted from the chart) 12:40 12:40 BASIC METABOLIC PANEL+C.LAB.BRZ ordered. EDMS EDMS 12:40 12:40 CBC+H.LAB.BRZ ordered. EDMS EDMS 12:40 12:40 HEPATIC FUNCTION+C.LAB.BRZ ordered. EDMS EDMS 12:40 12:40 MAGNESIUM+C.LAB.BRZ ordered. EDMS EDMS 12:40 12:40 PROBNP+C.LAB.BRZ ordered. EDMS EDMS 12:40 12:40 PROTIME (+INR)+COAG.LAB.BRZ ordered. EDMS EDMS 12:40 12:40 Troponin High Sensitivity+C.LAB.BRZ ordered. EDMS EDMS 12:40 12:40 Chest Single View+RAD.RAD.BRZ ordered. EDMS EDMS 16:17 14:07 Telemetry/MedSurg (Inpatient) ms3 ss 16:17 14:07 ms3 ss 20:08 16:17 [facility] ER HOLD ss kmf 20:08 16:17 ERHOLD- ss kmf
[2024-05-05] MEDS ORDERED: NA CHLORIDE 0.9% 250 ML ONE (15:04)
[2024-05-05] MEDS ORDERED: AZITHROMYCIN 500 MG INJ IVPB ONE (15:04)
--- NOTE | 2024-05-05 15:06 | P.HP ---
Certification for Inpatient Patient admitted to: Observation With expected LOS: <2 Midnights Practitioner: I am a practitioner with admitting privileges, knowledge of patient current condition, hospital course, and medical plan of care. Services: Services provided to patient in accordance with Admission requirements found in Title 42 Section 412.3 of the Code of Federal Regulations Patient History Date of Service: 05/05/24 Reason for admission: Acute hypoxic respiratory distress 2/2 COPD exacerbation History of Present Illness: Garth Loaiza is a 59 year old male with pmhx COPD and Bronchitis who presents to the ED with worsening SOB while using his inhalers and nebulizers for three days. He reports coming to the ED with chest pressure that he recognizes as his COPD exacerbation instead of a heart condition. On evaluation, Garth struggles to speak full sentences needing to catch his breath, lungs sounds with inspiratory wheezing, gurgles and nonproductive cough, on room air. Chest xray reports "Left midlung opacity has mostly resolved." Laboratory evaluation unremarkable. Garth will be admitted to hospitalist service for further evaluation and treatment, Dr. Donaldson consulted. Allergies iodine Allergy (Mild, Verified 12/10/11 12:13) Itching/Hives/Rash Home Medications: Budesonide/Glycopyr/Formoterol [Breztri Aerosphere Inhaler] 5.9 gm IH BID 06/01/22 Gabapentin 300 mg PO DAILY 06/01/22 Albuterol Neb [Proventil 0.083% Neb Soln] 2.5 mg NEB [id number] PRN #60 amp 06/05/22 Ipratropium Neb [Atrovent*] 0.5 mg NEB [id number] #60 amp 06/05/22 Roflumilast [Daliresp*] 500 mcg PO DAILY #1 tab 06/05/22 predniSONE [Prednisone*] 10 mg PO DAILY 11/03/23 Amox/Clavulanate [Augmentin 875-125 Tab] 1 each PO BID #14 tab 11/06/23 Benzonatate [Tessalon Perle*] 100 mg PO Q6H PRN #30 cap 11/06/23 Doxycycline Hyclate 100 mg PO BID #14 cap 11/06/23 Guaifenesin [Mucinex] 1,200 mg PO BID #40 tab 11/06/23 Hydrocodone 10/APAP 325 [[place] 10/325*] 1 tab PO Q6H PRN #15 tab 11/06/23 - Past Medical/Surgical History Diabetic: No -: COPD -: Seizure Disorder -: Anxiety disorder -: History of prostate cancer -: Bronchitis - Social History Smoking Status: Former smoker Alcohol use: No CD- Drugs: No Caffeine use: Yes Review of Systems Other: per HPI Physical Examination - Physical Exam General: Alert, In no apparent distress, Oriented x3 HEENT: Atraumatic, Normocephalic, PERRLA Neck: Supple, 2+ carotid pulse no bruit Respiratory: Normal air movement, Inspiratory wheezes, Rhonchi/gurgles Cardiovascular: No edema, Regular rate/rhythm, Normal S1 S2 Capillary refill: <2 Seconds Gastrointestinal: Normal bowel sounds, Soft and benign Musculoskeletal: No clubbing Integumentary: No rashes Neurological: Normal speech, Normal tone - Studies Laboratory Data (last 24 hrs) 05/05/24 05/05/24 05/05/24 13:15 13:15 13:15 WBC 7.60 Hgb 16.8 Hct 48.2 Plt Count 279 PT 10.3 INR 0.90 Sodium 135 L Potassium 4.6 BUN 9 Creatinine 1.03 Glucose 116 H Magnesium 2.3 Total Bilirubin 0.9 AST 18 ALT 32 Alkaline Phosphatase 135 H Assessment and Plan - Plan Assessment and PLan Acute hypoxic respiratory distress 2/2 COPD exacerbation -currently on Room air, Supplemental oxygen to maintain SpO2 > 92% -methylprednicolone 125 mg given in the ED -duonebs, IV steroids -Can transition to Prednisone PO daily when discharged to complete course -consulted Dr. Donaldson -Flu A/B, COVID pending Chest pain r/o -Serial troponin -ECHO -Asa, lipitor -lipid panel, TSH/Free T 4, A1C -Cardiology consult -Continuous telemetry DVT ppx lovenox Full code LOS 24 hour OBS Discharge Plan: Home Plan to discharge in: 24 Hours - Advance Directives Does patient have a Living Will: No Does patient have a Durable POA for Healthcare: No
[2024-05-05] MEDS ORDERED: ACETAMINOPHEN 325 MG TABLET PO PRN (15:23)
[2024-05-05 16:58] VITALS: BMI 25.8
[2024-05-05 18:25] LABS: Albumin/Globulin Ratio 1.1 (1.1-1.8); Bilirubin Total 0.8 mg/dL (0.2-1.0); Globulin 3.8 g/dL (2.3-3.5); Protein, Total 7.8 g/dL (6.4-8.2); Troponin High Sensitivity 5.1 pg/mL (<58.9)
[2024-05-05 20:11] LABS: Influenza A Ag Negative; Influenza B Ag Negative; SARS-CoV-2 Antigen Rapid Res Negative (Negative)
[2024-05-05] MEDS: ATORVASTATIN 40 MG TAB PO SCH (21:39)
[2024-05-05] MEDS: METHYLPREDNISOLONE 125 MG INJ IV SCH (21:39)
[2024-05-05] MEDS: IPRATROPIUM BROM 0.5MG/2.5ML NEB SCH (22:59)
[2024-05-05] MEDS: ALBUTEROL 2.5 MG/3 ML NEB SOL NEB SCH (22:59)
[2024-05-06 05:15] LABS: Absolute Lymphocytes (CBC) 0.5 K/uL (0.7-4.9); Absolute Monocytes 0.1 K/uL (0.1-1.3); Absolute Neutrophil 4.7 K/uL (1.8-8.0); Basophils % 0.6 % (0-1.3); Hematocrit 45.4 % (39.6-49.0); Hemoglobin 15.5 g/dL (13.6-17.9); Lymphocytes % 10.2 % (15.3-44.8); MCH 34.8 pg (27.0-35.0); MCHC 34.1 g/dL (32.0-36.0); MPV 7.9 fL (7.6-11.3); Monocytes % 1.7 % (3.3-12.3); Neutrophils % 87.5 % (41.7-73.7); Nucleated Red Blood Cells % 0.2 % (0-0); Platelets 262 thou/uL (152-406); RBC Red Blood Cell Count 4.45 M/uL (4.33-5.43); Red Cell Distribution Width 13.8 % (12.1-15.2)
[2024-05-06 05:50] LABS: Anion Gap 10.3 mEq/L (5.0-15.0); Phosphorus 3.3 mg/dL (2.5-4.9); Thyroid Stimulating Hormone 0.67 uIU/mL (0.358-3.740); Troponin High Sensitivity 4.2 pg/mL (<58.9)
[2024-05-06 05:52] LABS: Magnesium 2.2 mg/dL (1.6-2.4); Potassium 4.3 mEq/L (3.5-5.1)
--- NOTE | 2024-05-06 08:00 | P.CNS ---
Date of Consult: 05/06/24 Reason for Consult: COPD exacerbation Chief Complaint: COPD exacerbation History of Present Illness: Patient is 59 years of age admitted with worsening dyspnea over the past 4 days he has a history of COPD uses Breztri and albuterol on a as needed basis recen tly started taking steroids has been dyspnea on mild activity unable to even use the bathroom denies any cough productive sputum fever chills or chest pain Allergies iodine Allergy (Mild, Verified 12/10/11 12:13) Itching/Hives/Rash Home Medications: Budesonide/Glycopyr/Formoterol [Breztri Aerosphere Inhaler] 5.9 gm IH BID 06/01/22 Gabapentin 300 mg PO DAILY 06/01/22 Albuterol Neb [Proventil 0.083% Neb Soln] 2.5 mg NEB [id number] PRN #60 amp 06/05/22 Ipratropium Neb [Atrovent*] 0.5 mg NEB [id number] #60 amp 06/05/22 Roflumilast [Daliresp*] 500 mcg PO DAILY #1 tab 06/05/22 predniSONE [Prednisone*] 10 mg PO DAILY 11/03/23 Amox/Clavulanate [Augmentin 875-125 Tab] 1 each PO BID #14 tab 11/06/23 Benzonatate [Tessalon Perle*] 100 mg PO Q6H PRN #30 cap 11/06/23 Doxycycline Hyclate 100 mg PO BID #14 cap 11/06/23 Guaifenesin [Mucinex] 1,200 mg PO BID #40 tab 11/06/23 Hydrocodone 10/APAP 325 [[place] 10/325*] 1 tab PO Q6H PRN #15 tab 11/06/23 - Past Medical/Surgical History Diabetic: No -: COPD -: Seizure Disorder -: Anxiety disorder -: History of prostate cancer -: Bronchitis - Social History Smoking Status: Current every day smoker Alcohol use: No CD- Drugs: No Caffeine use: No Place of Residence: Home Review of Systems 10-point ROS is otherwise unremarkable General: Weakness Respiratory: Cough, Shortness of Breath Physical Examination Temp Pulse Resp BP Pulse Ox 97.6 F 93 H 17 128/65 93 05/06/24 04:00 05/06/24 04:00 05/06/24 04:00 05/06/24 04:00 05/06/24 04:00 General: Alert, In no apparent distress, Oriented x3 Respiratory: Diminished, Expiratory wheezes Cardiovascular: No edema, Normal S1 S2 Gastrointestinal: Normal bowel sounds, Soft and benign Laboratory Data (last 24 hrs) 05/05/24 05/05/24 05/05/24 14:06 13:15 13:15 WBC 7.60 Hgb 16.8 Hct 48.2 Plt Count 279 PT 10.3 INR 0.90 Sodium Cancelled Potassium Cancelled BUN Cancelled Creatinine Cancelled Glucose Cancelled Magnesium Total Bilirubin Cancelled AST Cancelled ALT Cancelled Alkaline Phosphatase Cancelled 05/05/24 13:15 WBC Hgb Hct Plt Count PT INR Sodium 135 L Potassium 4.6 BUN 9 Creatinine 1.03 Glucose 116 H Magnesium 2.3 Total Bilirubin 0.9 AST 18 ALT 32 Alkaline Phosphatase 135 H - Problems (1) COPD exacerbation Current Visit: No Status: Acute Plan: Patient is 59 years of age quit smoking 3 months ago admitted with worsening dyspnea suspect he has an exacerbation of underlying COPD patient uses Breztri and albuterol at home this time I have added scheduled bronchodilators changed to p.o. Zithromax also add p.o. cefuroxime add Daliresp continue with steroids labs chemistries reviewed oxygenation satisfactory chest x-ray clear hyperinflated
[2024-05-06] MEDS: ENOXAPARIN 40 MG/0.4 ML SQ SCH (08:36)
[2024-05-06] MEDS: CEFUROXIME 250 MG TAB PO SCH (08:38)
[2024-05-06] MEDS: ROFLUMILAST 500 MCG TABLET PO SCH (08:38)
[2024-05-06] MEDS: ASPIRIN EC 81 MG TAB PO SCH (08:38)
[2024-05-06] MEDS: AZITHROMYCIN 250 MG TAB PO SCH (08:38)
[2024-05-06] MEDS ORDERED: AZITHROMYCIN IV 500 MG in NA CHLORIDE 0.9% 250 ML IVPB SCH (09:00)
[2024-05-06 10:04] LABS: Blood Morphology Comment NOT SEEN (NOT SEEN); Platelet Estimate ADEQ; White Blood Cell Scan OK (OK)
--- NOTE | 2024-05-06 10:17 | P.CNS ---
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 Allergies iodine Allergy (Mild, Verified 12/10/11 12:13) Itching/Hives/Rash Home medications list reviewed: Yes Home Medications: Budesonide/Glycopyr/Formoterol [Breztri Aerosphere Inhaler] 5.9 gm IH BID 06/01/22 Gabapentin 300 mg PO DAILY 06/01/22 Albuterol Neb [Proventil 0.083% Neb Soln] 2.5 mg NEB [id number] PRN #60 amp 06/05/22 Ipratropium Neb [Atrovent*] 0.5 mg NEB [id number] #60 amp 06/05/22 Roflumilast [Daliresp*] 500 mcg PO DAILY #1 tab 06/05/22 predniSONE [Prednisone*] 10 mg PO DAILY 11/03/23 Amox/Clavulanate [Augmentin 875-125 Tab] 1 each PO BID #14 tab 11/06/23 Benzonatate [Tessalon Perle*] 100 mg PO Q6H PRN #30 cap 11/06/23 Doxycycline Hyclate 100 mg PO BID #14 cap 11/06/23 Guaifenesin [Mucinex] 1,200 mg PO BID #40 tab 11/06/23 Hydrocodone 10/APAP 325 [[place] 10/325*] 1 tab PO Q6H PRN #15 tab 11/06/23 - Past Medical/Surgical History Diabetic: No -: COPD -: Seizure Disorder -: Anxiety disorder -: History of prostate cancer -: Bronchitis - Social History Smoking Status: Current every day smoker Alcohol use: No CD- Drugs: No Caffeine use: No Place of Residence: Home Review of Systems 10-point ROS is otherwise unremarkable Physical Examination Temp Pulse Resp BP Pulse Ox 98.2 F 115 H 14 138/84 91 05/06/24 08:00 05/06/24 08:00 05/06/24 08:00 05/06/24 08:00 05/06/24 08:00 General: Alert, In no apparent distress HEENT: Atraumatic, PERRLA, Mucous membr. moist/pink, EOMI, Sclerae nonicteric Neck: Supple, 2+ carotid pulse no bruit, No LAD, Without JVD or thyroid abnormality Respiratory: Normal air movement, Dull Cardiovascular: Regular rate/rhythm, Normal S1 S2 Gastrointestinal: Normal bowel sounds, No tenderness Musculoskeletal: No tenderness Integumentary: No rashes Neurological: Normal gait, Normal speech, Normal tone, Normal affect Lymphatics: No axilla or inguinal lymphadenopathy Laboratory Data (last 24 hrs) 05/05/24 05/05/24 05/05/24 14:06 13:15 13:15 WBC 7.60 Hgb 16.8 Hct 48.2 Plt Count 279 PT 10.3 INR 0.90 Sodium Cancelled Potassium Cancelled BUN Cancelled Creatinine Cancelled Glucose Cancelled Magnesium Total Bilirubin Cancelled AST Cancelled ALT Cancelled Alkaline Phosphatase Cancelled 05/05/24 13:15 WBC Hgb Hct Plt Count PT INR Sodium 135 L Potassium 4.6 BUN 9 Creatinine 1.03 Glucose 116 H Magnesium 2.3 Total Bilirubin 0.9 AST 18 ALT 32 Alkaline Phosphatase 135 H - Problems (1) Chest pain Current Visit: Yes Status: Acute Plan: Troponin negative, EKG normal, agree with getting echo start ASA 81 mg daily outpatient follow up with cardiology for a stress test.
--- NOTE | 2024-05-06 11:05 | EKG ---
Test Date: 2024-05-05 Test Time: 13:08:47 Recording Engineer: TM MEASUREMENT RESULTS: Intervals: Rate: 94 MT: 136 QRSD: 86 QT: 350 QTc: 437 [place]: P: 82 MT: 136 QRS: 55 T: 78 INTERPRETIVE STATEMENTS: Normal sinus rhythm Normal ECG Compared to ECG 11/03/2023 15:56:36 No significant changes Electronically Signed On 05-06-24 11:03:44 [employer] by Vincent Lam
--- NOTE | 2024-05-06 11:30 | ECHO ---
HEIGHT: 5 ft 10 in WEIGHT: 180 lb 0 oz DATE OF STUDY: 05/06/[address]: Marianne Falk NP 2-DIMENSIONAL: YES M.MODE: YES DOPPLER: YES COLOR FLOW: YES TDS: NO PORTABLE: YES DEFINITY: NO BUBBLE STUDY: NO DIAGNOSIS: CHEST PRESSURE CARDIAC HISTORY: CATHERIZATION: NO SURGERY: NO PROSTHETIC VALVE: NO PACEMAKER: NO MEASUREMENTS (cm) DIASTOLIC (NORMALS) SYSTOLIC (NORMALS) IVSd 1.0 (0.6-1.2) LA Diam 2.2 (1.9-4.0) LVEF 60-65% LVIDd 4.4 (3.5-5.7) LVIDs 2.7 (2.0-3.5) %FS 39% LVPWd 1.1 (0.6-1.2) Ao Diam (2.0-3.7) 2 DIMENSIONAL ASSESSMENT: RIGHT ATRIUM: NORMAL LEFT ATRIUM: NORMAL RIGHT VENTRICLE: NORMAL LEFT VENTRICLE: NORMAL TRICUSPID VALVE: NORMAL MITRAL VALVE: NORMAL PULMONIC VALVE: NORMAL AORTIC VALVE: NORMAL PERICARDIAL EFFUSION: NONE AORTIC ROOT: NORMAL LEFT VENTRICULAR WALL MOTION: NORMAL. DOPPLER/COLOR FLOW: NORMAL. COMMENTS: 1. NORMAL LEFT VENTRICULAR SYSTOLIC FUNCTION. LEFT VENTRICULAR EJECTION FRACTION 60-65%. NORMAL WALL MOTION. 2. NORMAL DIASTOLIC FUNCTION. TECHNOLOGIST: ORIN GARCIA
[2024-05-06] MEDS: ALPRAZOLAM 0.25 MG TABLET PO PRN (12:11)
[2024-05-06] MEDS: NICOTINE 14 MG/PAT TD SCH (12:11)
--- NOTE | 2024-05-06 12:54 | P.PN ---
Date of Service: 05/06/24 Subjective Awake, on 2 LNC this morning Reports continued SOB at rest Wheezing continues ROS 10 point ROS as noted above, otherwise negative Physical Exam General: Alert and Oriented x3, uncomfortable HEENT: Atraumatic, Normocephalic, PERRLA Neck: Supple, 2+ carotid pulse no bruit Respiratory: Normal air movement, Inspiratory wheezes, Rhonchi/gurgles Cardiovascular: No edema, mild tachycardia, Normal S1 S2 Capillary refill: <2 Seconds Gastrointestinal: Normal bowel sounds, Soft and benign on palpation Musculoskeletal: No clubbing Integumentary: No rashes Neurological: Normal speech, Normal tone Vitals Reviewed Problem list Acute hypoxic respiratory distress 2/2 COPD exacerbation Chest pain r/o Assessment and Plan Acute hypoxic respiratory distress 2/2 Severe COPD exacerbation -currently on Room air, Supplemental oxygen to maintain SpO2 > 92% -methylprednisolone 125 mg given in the ED -duonebs, IV steroids -Can transition to Prednisone PO daily when discharged to complete course -Dr. Donaldson, added daliresp, PO zithromax, and PO ceftin -Flu A/B, COVID pending Chest pain r/o -Serial troponin, trended flat -ECHO EF 60-65%, WNL -Asa, lipitor -lipid panel (triglyceride 59, cholesterol 233, LDL 109, HDL 112) , TSH/Free T 4 0.670/0.85, A1C 5.3 -Cardiology consult, recommend outpatient follow up -Continuous telemetry DVT ppx lovenox Full code LOS 24 hour OBS Discharge Plan: Home
[2024-05-06 19:26] LABS: Specific Gravity 1.008 (1.005-1.030); Urine Bilirubin NEGATIVE (Negative); Urine Blood Negative (Negative); Urine Clarity Clear (Clear); Urine Color Colorless (Yellow); Urine Glucose NEGATIVE (Negative); Urine Ketones NEGATIVE (Negative); Urine Microscopic Reflex YN NO UMIC; Urine Nitrite NEGATIVE (Negative); Urine Protein NEGATIVE (Negative); Urine Urobilinogen Normal (Normal); Urine pH 6.5 (5.0-7.0)
[2024-05-07] MEDS: BENZONATATE 100 MG CAP PO PRN (04:06)
[2024-05-07 05:26] LABS: Absolute Lymphocytes (CBC) 0.5 K/uL (0.7-4.9); Absolute Monocytes 0.5 K/uL (0.1-1.3); Absolute Neutrophil 11.8 K/uL (1.8-8.0); Anion Gap 10.4 mEq/L (5.0-15.0); Basophils % 0.2 % (0-1.3); Hemoglobin 15.1 g/dL (13.6-17.9); Lymphocytes % 4.2 % (15.3-44.8); MCH 35.2 pg (27.0-35.0); MCHC 34.3 g/dL (32.0-36.0); MCV 102.6 fL (80-100); MPV 8.5 fL (7.6-11.3); Magnesium 2.6 mg/dL (1.6-2.4); Monocytes % 4.1 % (3.3-12.3); Neutrophils % 91.5 % (41.7-73.7); Nucleated Red Blood Cells % 0.1 % (0-0); Phosphorus 3.9 mg/dL (2.5-4.9); Platelets 264 thou/uL (152-406); Potassium 4.4 mEq/L (3.5-5.1); RBC Red Blood Cell Count 4.29 M/uL (4.33-5.43)
[2024-05-07 09:44] LABS: Atypical Lymphocytes 1 %; Blood Morphology Comment NOT SEEN (NOT SEEN); Differential Total Cells Count 100; Lymphocytes 3 % (15-42); Monocytes 4 % (0-10); Platelet Estimate ADEQ; Segmented Neutrophils 92 % (40-80)
[2024-05-07 13:00] VITALS: O2SAT 2
[2024-05-07 16:37] VITALS: BP 142/82; TEMP 98.4
--- NOTE | 2024-05-07 18:08 | P.DS ---
Admission Date: 05/06/24 Discharge Date: 05/07/24 Disposition: ROUTINE DISCHARGE Discharge Condition: GOOD Reason for Admission: COPD exacerbation Brief History of Present Illness: Diagnosis Acute hypoxic respiratory distress 2/2 COPD exacerbation Chest pain ruled out HPI 05/05/2024 Garth Loaiza is a 59 year old male with pmhx COPD and Bronchitis who presents to the ED with worsening SOB while using his inhalers and nebulizers for three days. He reports coming to the ED with chest pressure that he recognizes as his COPD exacerbation instead of a heart condition. On evaluation, Garth struggles to speak full sentences needing to catch his breath, lungs sounds with inspiratory wheezing, gurgles and nonproductive cough, on room air. Chest xray reports "Left midlung opacity has mostly resolved." Laboratory evaluation unremarkable. Garth will be admitted to hospitalist service for further evaluation and treatment, Dr. Donaldson consulted. Hospital Course: Patient was admitted and treated for the following diagnoses Acute hypoxic respiratory distress 2/2 Severe COPD exacerbation -on Room air, Supplemental oxygen to maintain SpO2 > 92% -Tolerated methylprednisolone 125 mg, DuoNeb, prednisone p.o., Daliresp, Zithromax, and Ceftin -Dr. Castro consulted-cleared for discharge -Flu A/B, COVID negative Chest pain r/o -troponin trended flat -ECHO EF 60-65%, WNL -Tolerated Asa, lipitor -lipid panel (triglyceride 59, cholesterol 233, LDL 109, HDL 112) , TSH/Free T 4 0.670/0.85, A1C 5.3 -Cardiology consult, recommend outpatient follow up -Continuous telemetry with no acute events On 05/07/2024, Garth was seen on morning rounds and deemed hemodynamically stable, Dr. Castro's and Dr. Lam evaluated and cleared him for discharge. Ceftin, azithromycin, prednisone, Daliresp, Tessalon Perles called into the pharmacy. Follow-up with Dr. Donaldson and Dr. Lam outpatient. Garth was able to ambulate around the nurses station with oxygen saturation of 95% on room air. Physical Exam General: AAOx3, comfortable Neck: Supple, 2+ carotid pulse no bruit Respiratory: Normal air movement, Inspiratory wheezes, on room air Cardiovascular: No edema, mild tachycardia, Normal S1 S2 Capillary refill: <2 Seconds Gastrointestinal: Normal bowel sounds, Soft on palpation Musculoskeletal: No clubbing Integumentary: No rashes Neurological: Normal speech, Normal tone Vital Signs/Physical Exam: Temp Pulse Resp BP Pulse Ox 98.4 F 109 H 16 142/82 H 95 05/07/24 16:00 05/07/24 16:00 05/07/24 16:00 05/07/24 16:00 05/07/24 16:00 Laboratory Data at Discharge: WBC 12.90 thou/uL (4.3-10.9) H 05/07/24 04:31 Hgb 15.1 g/dL (13.6-17.9) 05/07/24 04:31 Hct 44.0 % (39.6-49.0) 05/07/24 04:31 Plt Count 264 thou/uL (152-406) 05/07/24 04:31 PT 10.3 SECONDS (10.0-13.0) 05/05/24 13:15 INR 0.90 05/05/24 13:15 APTT 38.3 SECONDS (24.3-36.9) H 05/05/24 17:55 Sodium 136 mEq/L (136-145) 05/07/24 04:31 Potassium 4.4 mEq/L (3.5-5.1) 05/07/24 04:31 BUN 23 mg/dL (7-18) H 05/07/24 04:31 Creatinine 1.01 mg/dL (0.70-1.30) 05/07/24 04:31 Glucose 140 mg/dL (74-106) H 05/07/24 04:31 Phosphorus 3.9 mg/dL (2.5-4.9) 05/07/24 04:31 Magnesium 2.6 mg/dL (1.6-2.4) H 05/07/24 04:31 Total Bilirubin 0.8 mg/dL (0.2-1.0) 05/05/24 17:55 AST 17 U/L (15-37) 05/05/24 17:55 ALT 30 U/L (16-61) 05/05/24 17:55 Alkaline Phosphatase 118 U/L (45-117) H 05/05/24 17:55 Triglycerides 59 mg/dL (<150) 05/06/24 04:40 Cholesterol 233 mg/dL (<200) H 05/06/24 04:40 HDL Cholesterol 112 mg/dL (40-60) H 05/06/24 04:40 Cholesterol/HDL Ratio 2.08 05/06/24 04:40 Home Medications: Budesonide/Glycopyr/Formoterol [Breztri Aerosphere Inhaler] 5.9 gm IH BID 06/01/22 Gabapentin 300 mg PO DAILY 06/01/22 Albuterol Neb [Proventil 0.083% Neb Soln] 2.5 mg NEB [id number] PRN #60 amp 06/05/22 Ipratropium Neb [Atrovent*] 0.5 mg NEB [id number] #60 amp 06/05/22 Roflumilast [Daliresp*] 500 mcg PO DAILY #1 tab 06/05/22 Benzonatate [Tessalon Perle*] 100 mg PO Q6H PRN #30 cap 11/06/23 Guaifenesin [Mucinex] 1,200 mg PO BID #40 tab 11/06/23 Hydrocodone 10/APAP 325 [[place] 10/325*] 1 tab PO Q6H PRN #15 tab 11/06/23 Azithromycin Tab [Zithromax*] 500 mg PO DAILY 7 Days #14 tab 05/07/24 Benzonatate [Tessalon Perle*] 100 mg PO TID PRN 10 Days #30 cap 05/07/24 Cefuroxime [Ceftin*] 500 mg PO BID 10 Days #40 tab 05/07/24 Roflumilast [Daliresp*] 500 mcg PO DAILY 30 Days #30 tab 05/07/24 predniSONE [Prednisone*] 10 mg PO DAILY 60 Days #30 tab 05/07/24 New Medications: Cefuroxime [Ceftin*] 500 mg PO BID 10 Days #40 tab Roflumilast [Daliresp*] 500 mcg PO DAILY 30 Days #30 tab predniSONE [Prednisone*] 10 mg PO DAILY 60 Days #30 tab Benzonatate [Tessalon Perle*] 100 mg PO TID PRN 10 Days #30 cap PRN Reason: Cough Azithromycin Tab [Zithromax*] 500 mg PO DAILY 7 Days #14 tab Physician Discharge Instructions: 1. Please call and schedule a follow-up appointment with your PCP in 3-5 days - Please follow-up with your PCP for medication refills/adjustments 2. Please call and schedule a follow-up appointment with Dr. Donaldson in 3-5 days 3. Continue regular diet 4. No activity restrictions 5. Return to the ED if symptoms worsen New medications Ceftin 500 mg twice daily x 10 days Azithromycin 500 mg daily x 7 days Daliresp 500 mcg daily Tessalon Perles 100 mg 3 times daily Prednisone 10 mg daily x 60 days Diet: Regular Activity: Ad froilan Followup: Jonathon Donaldson MD [ACTIVE - CAN ADMIT] - ABBEY KUNZ [Primary Care Provider] -
[2024-05-07] MEDS ORDERED: ALBUTEROL 2.5 MG/3 ML NEB SOL ONE (19:46)
[2024-05-07] MEDS ORDERED: IPRATROPIUM BROM 0.5MG/2.5ML ONE (19:46)
== END 2024-05-07 19:15 | disposition home or self-care (01) | DRG 192 ==
LOC: ER 12:31 → ERHOLD 15:23 → 2ND 20:58 → OBSVTOIN 05-06 12:47
PROVIDERS: ADMIT Internal Medicine; ATTEND Internal Medicine
DX: J44.1 Chronic obstructive pulmonary disease with (acute) exacerbation (principal); I10 Essential (primary) hypertension; F17.210 Nicotine dependence, cigarettes, uncomplicated; R06.03 Acute respiratory distress; Z88.5 Allergy status to narcotic agent; Z11.52 Encounter for screening for COVID-19; Z79.899 Other long term (current) drug therapy
CPT/HCPCS: 36415; 71045; 80048; 80053; 80061; 80076; 81003; 83036; 83605; 83735; 83880; 84100; 84439; 84443; 84484; 85025; 85610; 85730; 87040; 87428; 93005; 93306; 94640; 96365; 96366; 96375; 99285; G0378; J1650; J2919; J7050; J7613; J7644